=== PATIENT | male | born 1955 | race Caucasian/White ===

== ENCOUNTER 2017-06-19 14:02 | Emergency (ER) | payer MEDICARE, OTHER ==
[~2017-06-19] VITALS: Ht 185.4 cm; Wt 101.6 kg
[~2017-06-19 14:02] MED LIST: FISH1CAP15 PO; GABA-488 PO
--- NOTE | 2017-06-19 14:22 | ED Integumentary General ---
General Chief Complaint: Skin/Wound Problems Stated Complaint: LEFT LEG LAC Source: patient Exam Limitations: no limitations History of Present Illness Date Seen by Provider: June 19, 2017 Time Seen by Provider: 14:10 Initial Comments Patient presents to ER by private conveyance with a chief complaint that he was just finishing mowing his lawn and went to get some gasoline for the mower walked around a tim bumper and it caught him on his left hanley laying him open about 5 or 6 cm. He had quite a bit of bleeding. He applied some pressure brought to the ER. He does not need anything for pain at this time. He is not having any nausea nor does he have any immune compromise. He thinks he had a tetanus shot about 2-3 years ago for similar injury. Other than a skin graft is had no other significant medical history and he takes gabapentin for chronic back pain. Allergies and Home Medications Allergies Coded Allergies: No Known Drug Allergies (Unverified , 03/08/10) Home Medications Fish Oil/Dha/Epa 1 Each Capsule, 1 EACH PO DAILY Prescribed by: CHAR SANCHEZ on 12/09/14 0943 Gabapentin 300 Mg Capsule, 300 MG PO DAILY, (Reported) Patient Home Medication List Home Medication List Reviewed: Yes Constitutional: No chills, No diaphoresis, No fever, No malaise EENTM: No ear discharge, No ear pain Respiratory: No cough, No short of breath Cardiovascular: No chest pain, No edema Gastrointestinal: No abdominal pain, No constipation, No diarrhea, No nausea Past Kdlsxdw-Kwkpjc-Syschs Hx Patient Social History Alcohol Use: Denies Use Recreational Drug Use: No Smoking Status: Never a Smoker Recent Foreign Travel: No Contact w/Someone Who Travel: No Recent Hopitalizations: No Physical Abuse: No Sexual Abuse: No Mistreated: No Fear: No Immunizations Up To Date Date of Influenza Vaccine: Nov 06, 2014 Seasonal Allergies Seasonal Allergies: No Past Medical History Surgeries: Yes (BACK SX, SKIN GRAFT) Orthopedic Respiratory: No Cardiac: No Neurological: No Neuropathy Genitourinary: No Gastrointestinal: No (FAMILY HX COLON CANCER) Musculoskeletal: No Endocrine: No Psychosocial: No Nursing Suicide Risk Score: 0 Integumentary: No Blood Disorders: No Physical Exam Vital Signs Vital Signs - First Documented 06/19/17 14:11 Pulse 88 Resp 20 B/P (MAP) 145/84 (104) Pulse Ox 94 O2 Delivery Room Air Capillary Refill : General Appearance: WD/WN, no apparent distress HEENT: PERRL/EOMI, pharynx normal Neck: non-tender, normal inspection Cardiovascular: normal peripheral pulses, regular rate, rhythm, no edema Respiratory: chest non-tender, no respiratory distress, no accessory muscle use Gastrointestinal: non tender, soft Extremities: non-tender, normal capillary refill, other (5-6 cm marginally undermined straight laceration down to the fascia the anterior left lower extremity leg. About midway down the diaphysis of the tibia. healthy amount of bleeding.) Neurologic/Psychiatric: no motor/sensory deficits, alert, oriented x 3 Skin: other (prior skin graft well-healed. Laceration as noted above.) Procedures/Interventions Wound Location: Lower Extremities Other Wound Location 6 cm Wound Length (cm): 6 Wound's Depth, Shape: into muscle (1cm), linear Irrigated w/ Saline (ccs): 250 Betadine Prep?: No (chlorhexidine) Anesthesia: 1% Lidocaine Volume Anesthetic (ccs): 12 Wound Debrided: minimal Suture: Prolene Suture Size: 0 Number of Sutures: 6 Layer Closure?: 1 Progress Wound was cleaned and undermined with chlorhexidine soap water. Wound is fairly clean start with. Was closed with 6 simple interrupted sutures and well approximated. Patient tolerated procedure very well. Progress/Results/Core Measures Results/Orders My Orders Orders - BRYANT ARVIZU Lidocaine 1% Inj 50 Ml (Xylocaine 1% Inj (06/19/17 14:30) Lidocaine 1% Inj 20 Ml (Xylocaine 1% Inj (06/19/17 14:44) Medications Given in ED Current Medications Medications Dose Ordered Sig/Barb Route Start Time Stop Time Status Last Admin Dose Admin Lidocaine HCl 20 ml STK-MED ONCE .ROUTE 06/19/17 14:44 06/19/17 14:49 DC 06/19/17 14:50 8 ML Vital Signs/I&O 06/19/17 14:11 Pulse 88 Resp 20 B/P (MAP) 145/84 (104) Pulse Ox 94 O2 Delivery Room Air Progress Progress Note : Time: 14:21 Progress Note We've cleaned the wound thoroughly with 250 cc of chlorhexidine sterile saline water and a syringe. There is very little contamination to be seen. No debridement needed. Plan to close primarily by sutures. Given that the wound is on an extremity we'll plan to cover him with 3 days of antibiotics prophylactically. We have counseled proper wound care and will have him follow- up in the ER in 7-10 days for suture removal. Departure Impression Primary Impression: Laceration Disposition: 01 HOME, SELF-CARE Condition: Improved Departure-Patient Inst. Decision time for Depature: 15:14 Referrals: GRACIE SAM MD (PCP/Family) Primary Care Physician Patient Instructions: Laceration Repair With Stitches (DC) Add. Discharge Instructions: Follow-up with your doctor sooner if you begin to have fevers, nausea, increased redness swelling or pain at the site of the wound. Otherwise plan to take your antibiotics for 3 days, keep the wound clean with regular soap and water and a dressing. You may apply a thin layer of Vaseline over the skin edges to keep the moist. Return to the ER or your primary care doctor in 7-10 days to have the stitches removed. All discharge instructions reviewed with patient and/or family. Voiced understanding. Scripts Cephalexin (Cephalexin) 500 Mg Tablet 500 MG PO QID for 3 Days, #12 TAB 0 Refills Prov: BRYANT ARVIZU 06/19/17 Copy Copies To 1: GRACIE SAM MD, TITUS J June 19, 2017 14:22
[2017-06-19] MEDS ORDERED: LIDOCAINE 1% INJ 50 ML (XYLOCAINE) VIAL IJ ONE (14:30)
[2017-06-19] MEDS ORDERED: LIDOCAINE 1% INJ 20 ML 20 ML VIAL ONE (14:44)
[2017-06-19] MEDS ORDERED: CEPH500T PO (15:15)
[2017-06-19 15:35] VITALS: BP 132/81
--- OUTSIDE RECORDS SUMMARY | 2017-06-19 15:48 | XMS REPORT | Continuity of Care Document ---
Author Author [facility] Address Unknown Phone Unavailable Allergies Active Description Code Type Severity Reaction Onset Reported/Identified Relationship to Patient Clinical Status Yes No Known Drug Allergies [id number] Drug Allergy Unknown N/A 03/08/2010 Medications There is no data. Problems Date Dx Coded Attending Type Code Diagnosis Diagnosed By 11/20/2013 TERELL FLOYD DO V04.81 FLU SHOT 12/09/2014 Ot 715.95 12/09/2014 Ot 722.52 12/09/2014 Ot 729.5 12/09/2014 Ot 738.4 12/09/2014 Ot 959.19 12/09/2014 Ot E000.0 12/09/2014 Ot E849.3 12/09/2014 Ot E928.9 12/09/2014 DAVID IBARRA MD Ot V72.84 12/09/2014 SAMREEN SABILLON DO Ot M47.816 SPONDYLOSIS W/O MYELOPATHY OR RADICULOPA 12/16/2014 BELGICA ACE MD Ot 724.02 12/16/2014 BELGICA ACE MD Ot V45.4 10/19/2015 BELGICA ACE MD Ot 724.02 SPINAL STENOSIS, LUMBAR REG, W/OUT NEURO 10/19/2015 BELGICA ACE MD Ot V45.4 ARTHRODESIS STATUS 10/21/2015 BELGICA ACE MD Ot 724.02 SPINAL STENOSIS, LUMBAR REG, W/OUT NEURO 10/21/2015 BELGICA ACE MD Ot V45.4 ARTHRODESIS STATUS 10/22/2015 SAMREEN SABILLON DO Ot M54.9 DORSALGIA, UNSPECIFIED Procedures There is no data. Results There is no data. Encounters ACCT No. Visit Date/Time Discharge Status Pt. Type Provider Facility Loc./Unit Complaint [id number] 11/20/2013 18:57:00 11/20/2013 23:59:59 [place] [id number] 11/14/2016 18:20:00 11/14/2016 23:59:59 CLS Outpatient TERELL FLOYD DO [facility] [id number] 10/21/2015 13:20:00 10/21/2015 23:59:59 CLS Outpatient SAMREEN SABILLON DO [facility] RAD BACK PAIN [id number] 12/09/2014 09:09:00 12/09/2014 14:45:00 DIS Outpatient SAMREEN SABILLON DO [facility] RAD PSEUDOARTHROSIS [id number] 09/03/2013 07:37:00 09/03/2013 10:55:00 DIS Outpatient [id number] 08/30/2013 07:55:00 08/30/2013 23:59:59 CLS Outpatient DAVID IBARRA MD [facility] PREOP [id number] 02/14/2013 09:20:00 02/14/2013 23:59:59 CLS Outpatient BELGICA ACE MD [facility] RAD LUMBAR STENOSIS [id number] 08/16/2011 15:19:00 Document Registration [id number] 09/15/2016 07:49:47 09/15/2016 23:59:59 CLS Outpatient
== END 2017-06-19 15:35 | disposition home or self-care (01) ==
LOC: EDUNIT# 14:02 → ER 14:03
DX: S91.312A Laceration without foreign body, left foot, initial encounter (principal); Z80.0 Family history of malignant neoplasm of digestive organs; W29.8XXA Contact with other powered hand tools and household machinery, initial encounter
CPT/HCPCS: 12055

== ENCOUNTER 2018-03-16 06:19 | Outpatient (CLI) | payer MEDICARE, OTHER ==
[~2018-03-16] VITALS: Ht 185.4 cm; Wt 101.6 kg
[~2018-03-16 06:19] MED LIST changes: +CEPH500T PO
== END 2018-03-16 11:48 | disposition home or self-care (01) ==
LOC: PREOP 06:19
PROVIDERS: ATTEND Internal Medicine
DX: Z01.818 Encounter for other preprocedural examination (principal)

== ENCOUNTER 2018-03-23 07:53 | Day surgery (SDC) | payer MEDICARE, OTHER ==
--- NOTE | 2018-03-12 17:28 | HISTORY AND PHYSICAL ---
DATE OF SERVICE: HISTORY OF PRESENT ILLNESS: The patient is a 62-year-old white male referred for screening colonoscopy. There is a very strong family history for colon cancer. He is one of 16 children. He has had 3 brothers and 2 sisters diagnosed in their 40s, one brother diagnosed in his 60s and two sisters diagnosed in their 60s with colon cancer. He is not aware of any other cancers that have run in the family. He last underwent colonoscopy in 08/2013, at which time no abnormality and no evidence for neoplasia was noted. He reports that he has felt well since then. He has had no bowel habit change. Denies abdominal pain and has noted no evidence for blood in the stool, melena or bright red. He has had no heartburn symptoms and denies any weight change. PAST MEDICAL HISTORY: Noncontributory. PAST SURGICAL HISTORY: He has had lumbar surgery x2, with the last required cage and artificial disk placement. He has had bilateral carpal tunnel surgery in the past. 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 He has rare alcohol intake. FAMILY HISTORY: As noted in the HPI. PHYSICAL EXAMINATION: GENERAL: Reveals a well-appearing white male, who appears to be in no acute distress. VITAL SIGNS: Blood pressure was 126/78, heart rate 70 and regular. HEENT: Unremarkable. He is a Mallampati class 3 oropharyngeal configuration with no evidence for erythema, exudate or ulceration. NECK: Revealed no JVD, adenopathy or bruits. CHEST: Clear to auscultation. CARDIOVASCULAR: Reveals a regular rate and rhythm without murmur, S3 or S4. ABDOMEN: Soft, supple without mass, organomegaly or tenderness. He does have evidence for diastasis recti with no evidence for ventral hernia. Bowel sounds are positive. No bruits are noted. There is no evidence on palpation to suggest abdominal aortic aneurysm. EXTREMITIES: Reveal no cyanosis, clubbing or edema. ASSESSMENT AND PLAN: This patient is set up for early screening colonoscopy due to very strong family history for colon cancer. Multiple siblings being diagnosed as noted above. Prep instructions and Suprep kit were given and questions were answered. He was set up for colonoscopy on 03/23/2018. I thank you for the referral of this pleasant gentleman. Job ID: [id number] DocumentID: [id number] Dictated Date: 03/08/2018 14:50:16 Bail Bonding Agent Date: 03/08/2018 15:09:10 Dictated By: DAVID IBARRA MD MTDD
[~2018-03-23] VITALS: Ht 185.4 cm; Wt 101.6 kg
[2018-03-23] MEDS ORDERED: D5 LR IV SOLUTION 1,000 ML IV STA (08:03)
[2018-03-23] MEDS ORDERED: D5 LR IV SOLUTION 1,000 ML IV ONE (08:03)
[2018-03-23] MEDS ORDERED: fentaNYL INJECTION 100 MCG/2 ML AMP IVP ONE (08:15)
[2018-03-23] MEDS ORDERED: MIDAZOLAM 2 MG/2 ML (VERSED) VIAL IVP ONE (08:15)
[2018-03-23] MEDS ORDERED: LIDOCAINE JELLY 2% 6 ML SYRINGE MM PRN (08:15)
[2018-03-23 08:17] VITALS: BP 139/82
--- NOTE | 2018-03-23 08:47 | Pre-Op Note & Conscious Sedat ---
Pre-Operative Progress Note H&P Reviewed The H&P was reviewed, patient examined and no changes noted. Date H&P Reviewed: Mar 23, 2018 Time H&P Reviewed: 08:47 Conscious Sedation Pre-Proced ASA Score 2 For ASA 3 and 4: Consider anesthesia and medical clearance. Also, for patients with a history of failed moderate sedation consider anesthesia. Airway Lungs Heart ASA score ASA 1: a normal healthy patient ASA 2: a patient with a mild systemic disease (mid diabetes, controlled hypertension, obesity ASA 3: a patient with a severe systemic disease that limits activity (angina , COPD, prior Myocardial infarction) ASA 4: a patient with an incapacitating disease that is a constant threat to life (CHF, renal failure) ASA 5: a moribund patient not expected to survive 24 hrs. (ruptured aneurysm) ASA 6: a declared brain- patient whose organs are being harvested. For emergent operations, add the letter E after the classification Mallampati Classification Grade 3 Sedation Plan Analgesia, Amnesia, Plan communicated to team members, Discussed options with patient/fam, Discussed risks with patient/fam The patient is an appropriate candidate to undergo the planned procedure, sedation, and anesthesia. The patient immediately re-assessed prior to indication. DAVID IBARRA MD Mar 23, 2018 08:47
[2018-03-23] MEDS ORDERED: MIDAZOLAM 2 MG/2 ML (VERSED) VIAL ONE ×2 (08:54)
[2018-03-23] MEDS ORDERED: fentaNYL INJECTION 100 MCG/2 ML AMP ONE (08:54)
[2018-03-23] MEDS ORDERED: LIDOCAINE JELLY 2% 6 ML SYRINGE ONE (08:55)
[2018-03-23 09:50] VITALS: BP 116/72
--- OUTSIDE RECORDS SUMMARY | 2018-03-23 10:19 | XMS REPORT | CCD ---
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 Role Phone PP Unavailable CCM Unavailable Summary Purpose Interface Exchange Insurance Providers Payer name Policy type / Coverage type Covered alliance party ID Effective Begin Date Effective End Date WPS Medicare Part B Medicare Part B [id number] Unknown [employer] [place] Medicare Part B [id number] Unknown Family history Sister Diagnosis Age At Onset Diabetes Unknown Father Diagnosis Age At Onset Stroke Unknown Brother Diagnosis Age At Onset Diabetes Unknown Brother Diagnosis Age At Onset No Family Disease Entered N/A Mother Diagnosis Age At Onset Diabetes Unknown Social History Social History Element Codes Description Effective Dates Number of children Unknown 1 03/06/2018 On Disability Unknown Yes 03/06/2018 Marital status Unknown Sandra 08/24/[address]: 767465281 Never smoker 08/25/[address]: 343349763 Never drinks alcohol 08/25/2014 Allergies, Adverse Reactions, Alerts Substance Reaction Codes Entered Date Inactivated Date Status * OTHER REACTION - SEE ANSWER BOX Hydrocodone- dizzy, sick Unknown 08/24/2015 No Inactive Date Active Past Medical History Illness Codes Condition Status Onset Date Resolved Date Encounter for general adult medical examination with abnormal findings ICD-9: V70.0 ICD-10: Z00.01 Active 03/06/2018 Unknown Abnormal results of liver function studies ICD-9: 794.8 ICD-10: R94.5 Active 02/22/2018 Unknown Encounter for general adult medical examination without abnormal findings ICD-9: V70.0 ICD-10: Z00.00 Active 08/23/2015 Unknown Generalized anxiety disorder ICD-9: 300.02 ICD-10: F41.1 Active 02/19/2018 Unknown Other idiopathic peripheral autonomic neuropathy ICD-9: 337.00 ICD-10: G90.09 Active 08/25/2016 Unknown Encounter for removal of sutures ICD-9: V58.32 ICD-10: Z48.02 Active 06/28/2017 Unknown neuropathy Unknown Active 08/25/2016 Unknown Acute laryngopharyngitis ICD-9: 465.0 ICD-10: J06.0 Active 10/25/2015 Unknown Other allergic rhinitis ICD-9: 477.8 ICD-10: J30.89 Active 10/25/2015 Unknown Polyneuropathy, unspecified ICD-9: 356.9 ICD-10: G62.9 Active 08/24/2014 Unknown Peripheral neuropathy ICD-9: 356.9 Active 08/24/2014 Unknown Tinea ICD-9: 110.9 Active 08/24/2014 Unknown Problems Condition Codes Effective Dates Condition Status Encounter for general adult medical examination with abnormal findings ICD-9: V70.0 ICD-10: Z00.01 03/06/2018 Active Abnormal results of liver function studies ICD-9: 794.8 ICD-10: R94.5 02/22/2018 Active Encounter for general adult medical examination without abnormal findings ICD-9: V70.0 ICD-10: Z00.00 08/23/2015 Active Generalized anxiety disorder ICD-9: 300.02 ICD-10: F41.1 02/19/2018 Active Other idiopathic peripheral autonomic neuropathy ICD-9: 337.00 ICD-10: G90.09 08/25/2016 Active Encounter for removal of sutures ICD-9: V58.32 ICD-10: Z48.02 06/28/2017 Active neuropathy Unknown 08/25/2016 Active Acute laryngopharyngitis ICD-9: 465.0 ICD-10: J06.0 10/25/2015 Active Other allergic rhinitis ICD-9: 477.8 ICD-10: J30.89 10/25/2015 Active Polyneuropathy, unspecified ICD-9: 356.9 ICD-10: G62.9 08/24/2014 Active Peripheral neuropathy ICD-9: 356.9 08/24/2014 Active Tinea ICD-9: 110.9 08/24/2014 Active Medications Medication Codes Instructions Start Date Stop Date Status Fill Instructions Lexapro 10 mg tablet RxNorm: 174627 1 Tablet(s) PO QPM 201809/01/2018 Active start with 1/2 pill x 1 week then increase to a full pill Lyrica 100 mg capsule RxNorm: 200816 1 Capsule(s) PO TID 201602/18/2018 Inactive Lyrica 75 mg capsule RxNorm: 485262 1 Capsule(s) PO TID 201609/07/2016 Inactive gabapentin 300 mg capsule RxNorm: 802465 Capsule(s) TAKE ONE CAPSULE BY MOUTH THREE TIMES DAILY 01/28/2016 08/24/2016 Inactive Tessalon Perles 100 mg capsule RxNorm: 526652 1 Capsule(s) PO TID as needed 10/26/2015 10/30/2015 Inactive amoxicillin 500 mg capsule RxNorm: 443345 1 Capsule(s) PO TID 10/26/2015 11/01/2015 Inactive Fish Oil 1,000 mg capsule RxNorm: 1 Capsule(s) PO BID 201510/10/2015 Inactive gabapentin 300 mg capsule RxNorm: 370857 Capsule(s) TAKE ONE CAPSULE BY MOUTH THREE TIMES DAILY 08/13/2015 01/27/2016 Inactive Generic For:NEURONTIN 300MG N O T I C E PRESCRIPTION PREVIOUSLY AUTHORIZED BY DOCTOR:ZEKE LANCASTER [phone] gabapentin 300 mg capsule RxNorm: 807088 Capsule(s) TAKE ONE CAPSULE BY MOUTH THREE TIMES DAILY 03/10/2015 08/12/2015 Inactive Generic For:NEURONTIN 300MG N O T I C E PRESCRIPTION PREVIOUSLY AUTHORIZED BY DOCTOR:ZEKE LANCASTER gabapentin 300 mg capsule RxNorm: 689884 Capsule(s) TAKE ONE CAPSULE BY MOUTH THREE TIMES DAILY 03/10/2015 03/09/2015 Inactive Generic For:NEURONTIN 300MG N O T I C E PRESCRIPTION PREVIOUSLY AUTHORIZED BY DOCTOR:ZEKE LANCASTER gabapentin 300 mg capsule RxNorm: 770570 TAKE ONE CAPSULE BY MOUTH THREE TIMES DAILY 11/28/2014 03/09/2015 Inactive Generic For:NEURONTIN 300MG N O T I C E PRESCRIPTION PREVIOUSLY AUTHORIZED BY DOCTOR:ZEKE LANCASTER ketoconazole 2 % shampoo RxNorm: 692193 1 Application TOP daily 08/25/2014 08/31/2014 Inactive gabapentin 300 mg capsule RxNorm: 992905 1 Capsule(s) PO TID No Start Date 11/27/2014 Inactive Medication Administered No Medication Administered data Immunizations Vaccine Codes Date Status Influenza CVX: 141 11/06/2013 completed Assessments Condition Codes Effective Dates Encounter for general adult medical examination with abnormal findings ICD-10: Z00.01 ICD-9: V70.0 03/06/2018 Abnormal results of liver function studies ICD-10: R94.5 ICD-9: 794.8 02/22/2018 Generalized anxiety disorder ICD-10: F41.1 ICD-9: 300.02 02/19/2018 Other idiopathic peripheral autonomic neuropathy ICD-10: G90.09 ICD-9: 337.00 02/19/2018 Encounter for removal of sutures ICD-10: Z48.02 ICD-9: V58.32 06/28/2017 Acute laryngopharyngitis ICD-10: J06.0 ICD-9: 465.0 10/26/2015 Other allergic rhinitis ICD-10: J30.89 ICD-9: 477.8 10/26/2015 Polyneuropathy, unspecified ICD-10: G62.9 ICD-9: 356.9 08/24/2015 Encounter for general adult medical examination without abnormal findings ICD-10: Z00.00 ICD-9: V70.0 08/24/2015 Tinea ICD-9: 110.9 08/25/2014 Peripheral neuropathy ICD-9: 356.9 2014 Reason For Visit Reason For Visit Effective Dates Notes Annual Medicare Wellness Exam 03/06/2018 paresthesia 02/19/2018 paresthesia 08/25/2016 sinus congestion 10/26/2015 weight gain/obesity 08/24/2015 back pain 08/25/2014 Results Observation Observation Code Item Item Code Result Date Hepatitis Panel (Abc) 39123 HEPATITIS B SURFACE AG . Hepatitis Panel (Abc) 35456 HEPATITIS B SURFACE AG NEGATIVE 02/23/2018 Hepatitis Panel (Abc) 33184 HEPATITIS B CORE AB, IGM . Hepatitis Panel (Abc) 27086 HEPATITIS B CORE AB, IGM NEGATIVE 02/23/2018 Hepatitis Panel (Abc) 61873 HEPATITIS A AB, IGM . 2018 Hepatitis Panel (Abc) 77409 HEPATITIS A AB, IGM NEGATIVE Hepatitis Panel (Abc) 99181 HEPATITIS C ANTIBODY . 2018 Hepatitis Panel (Abc) 27015 HEPATITIS C ANTIBODY NEGATIVE Lipid Ord30 CHOL 194 mg/dL 02/20/2018 Lipid Ord30 HDL 38.0 mg/dl 02/20/2018 Lipid Ord30 TRIG 223 mg/dL 02/20/2018 Lipid Ord30 LDL 111 mg/dL 02/20/2018 Lipid Ord30 C/HDL 5.1 Ratio 02/20/2018 Comp Metabolic Iqa791 NA 139 mEq/L 02/20/2018 Comp Metabolic Psg792 K 4.5 mEq/L 02/20/2018 Comp Metabolic Smh159 CL 101 mEq/L 02/20/2018 Comp Metabolic Xfx163 CO2 31.0 mEq/L 02/20/2018 Comp Metabolic Htm562 ANION GAP 12 02/20/2018 Comp Metabolic Vri701 GLUCOSE 103 mg/dL 02/20/2018 Comp Metabolic Hkc883 Creat 0.9 mg/dL 02/20/2018 Comp Metabolic Wqe083 eGFR 92 ml/min/1.73m2 02/20/2018 Comp Metabolic Gjg882 BUN 12 mg/dL 02/20/2018 Comp Metabolic Dcj277 B/C Ratio 13.5 Ratio 02/20/2018 Comp Metabolic Sgy156 CALCIUM 10.4 mg/dL 02/20/2018 Comp Metabolic Nzt882 ALK PHOS 71 U/L 02/20/2018 Comp Metabolic Okq747 AST(SGOT) 44 U/L 02/20/2018 Comp Metabolic Yyp161 ALT(SGPT) 84 U/L 02/20/2018 Comp Metabolic Kdy298 BILI T 0.8 mg/dL 02/20/2018 Comp Metabolic Uge350 ALBUMIN 4.7 g/dL 02/20/2018 Comp Metabolic Ors781 TPRO 7.3 g/dL 02/20/2018 Comp Metabolic Arx903 GLOB 2.6 g/dL 02/20/2018 Comp Metabolic Fpl393 A/G Ratio 1.8 Ratio 02/20/2018 Comp Metabolic Nsd734 Osmo 278 mOsmo 02/20/2018 Tsh Ord6 TSH (3rd IS) 2.12 uIU/mL 02/20/2018 Cbc With Differential Ord2 WBC 6.67 K/ul 02/20/2018 Cbc With Differential Ord2 RBC 5.83 M/ul 02/20/2018 Cbc With Differential Ord2 HGB 16.8 g/dl 02/20/2018 Cbc With Differential Ord2 Neut% 47.2 % 02/20/2018 Cbc With Differential Ord2 HCT 49.1 % 02/20/2018 Cbc With Differential Ord2 Lymph% 35.2 % 02/20/2018 Cbc With Differential Ord2 MCV 84.2 fl 02/20/2018 Cbc With Differential Ord2 MCH 28.8 pg 02/20/2018 Cbc With Differential Ord2 [place]% 11.8 % 02/20/2018 Cbc With Differential Ord2 MCHC 34.2 pg 02/20/2018 Cbc With Differential Ord2 Eos% 5.1 % 02/20/2018 Cbc With Differential Ord2 PLT 226 K/ul 02/20/2018 Cbc With Differential Ord2 Baso% 0.7 % 02/20/2018 Cbc With Differential Ord2 Neut ABS# 3.14 K/ul 02/20/2018 Cbc With Differential Ord2 RDW 14.0 % 02/20/2018 Cbc With Differential Ord2 Lymph ABS# 2.35 K/ul 02/20/2018 Cbc With Differential Ord2 [place] ABS# 0.8 K/ul 02/20/2018 Cbc With Differential Ord2 Eos ABS# 0.3 K/ul 02/20/2018 Cbc With Differential Ord2 Baso ABS# 0.1 K/ul 02/20/2018 Total Psa Ord10 PSA 0.34 ng/mL 02/20/2018 Tsh Ord6 hTSH II 1.55 uIU/mL 08/26/2016 Lipid Ord30 CHOL 181 mg/dL 08/26/2016 Lipid Ord30 HDL 42.0 mg/dl 08/26/2016 Lipid Ord30 TRIG 169 mg/dL 08/26/2016 Lipid Ord30 LDL 105 mg/dL 08/26/2016 Lipid Ord30 C/HDL 4.3 Ratio 08/26/2016 Folate Ord36 Folate 21.80 ng/mL 08/26/2016 Cbc With Differential Ord2 WBC 7.61 K/ul 08/26/2016 Cbc With Differential Ord2 RBC 5.61 M/ul 08/26/2016 Cbc With Differential Ord2 HGB 16.2 g/dl 08/26/2016 Cbc With Differential Ord2 HCT 48.0 % 08/26/2016 Cbc With Differential Ord2 Neut% 56.5 % 08/26/2016 Cbc With Differential Ord2 Lymph% 29.4 % 08/26/2016 Cbc With Differential Ord2 MCV 85.6 fl 08/26/2016 Cbc With Differential Ord2 MCH 28.9 pg 08/26/2016 Cbc With Differential Ord2 [place]% 8.7 % 08/26/2016 Cbc With Differential Ord2 MCHC 33.8 pg 08/26/2016 Cbc With Differential Ord2 Eos% 4.9 % 08/26/2016 Cbc With Differential Ord2 Baso% 0.5 % 08/26/2016 Cbc With Differential Ord2 PLT 210 K/ul 08/26/2016 Cbc With Differential Ord2 Neut ABS# 4.30 K/ul 08/26/2016 Cbc With Differential Ord2 RDW 13.9 % 08/26/2016 Cbc With Differential Ord2 Lymph ABS# 2.24 K/ul 08/26/2016 Cbc With Differential Ord2 [place] ABS# 0.7 K/ul 08/26/2016 Cbc With Differential Ord2 Eos ABS# 0.4 K/ul 08/26/2016 Cbc With Differential Ord2 Baso ABS# 0.0 K/ul 08/26/2016 Comp Metabolic Rdl819 NA 140 mEq/L 08/26/2016 Comp Metabolic Uia979 K 4.8 mEq/L 08/26/2016 Comp Metabolic Dam182 CL 105 mEq/L 08/26/2016 Comp Metabolic Xbc928 CO2 28.0 mEq/L 08/26/2016 Comp Metabolic Bvf267 ANION GAP 12 08/26/2016 Comp Metabolic Pce224 GLUCOSE 96 mg/dL 08/26/2016 Comp Metabolic Hvr023 Creat 1.0 mg/dL 08/26/2016 Comp Metabolic Gdy745 eGFR 78 ml/min/1.73m2 08/26/2016 Comp Metabolic Oyw989 BUN 16 mg/dL 08/26/2016 Comp Metabolic Jtu574 B/C Ratio 15.5 Ratio 08/26/2016 Comp Metabolic Trx151 CALCIUM 9.6 mg/dL 08/26/2016 Comp Metabolic Avz842 ALK PHOS 74 U/L 08/26/2016 Comp Metabolic Cbz939 AST(SGOT) 30 U/L 08/26/2016 Comp Metabolic Hli848 ALT(SGPT) 48 U/L 08/26/2016 Comp Metabolic Neo875 BILI T 0.7 mg/dL 08/26/2016 Comp Metabolic Ixs080 ALBUMIN 4.3 g/dL 08/26/2016 Comp Metabolic Nyi703 TPRO 7.1 g/dL 08/26/2016 Comp Metabolic Gum335 GLOB 2.8 g/dL 08/26/2016 Comp Metabolic Syj526 A/G Ratio 1.6 Ratio 08/26/2016 Comp Metabolic Kqz302 Osmo 280 mOsmo 08/26/2016 B12 Mte199 B12 545.00 pg/ml 08/26/2016 Cbc With Differential Ord2 WBC 6.53 K/ul 08/24/2015 Cbc With Differential Ord2 RBC 5.43 M/ul 08/24/2015 Cbc With Differential Ord2 HGB 15.7 g/dl 08/24/2015 Cbc With Differential Ord2 HCT 46.5 % 08/24/2015 Cbc With Differential Ord2 Neut% 48.5 % 08/24/2015 Cbc With Differential Ord2 MCV 85.6 fl 08/24/2015 Cbc With Differential Ord2 Lymph% 34.8 % 08/24/2015 Cbc With Differential Ord2 MCH 28.9 pg 08/24/2015 Cbc With Differential Ord2 [place]% 13.2 % 08/24/2015 Cbc With Differential Ord2 MCHC 33.8 pg 08/24/2015 Cbc With Differential Ord2 Eos% 3.2 % 08/24/2015 Cbc With Differential Ord2 Baso% 0.3 % 08/24/2015 Cbc With Differential Ord2 PLT 218 K/ul 08/24/2015 Cbc With Differential Ord2 Neut ABS# 3.17 K/ul 08/24/2015 Cbc With Differential Ord2 RDW 14.3 % 08/24/2015 Cbc With Differential Ord2 Lymph ABS# 2.27 K/ul 08/24/2015 Cbc With Differential Ord2 [place] ABS# 0.9 K/ul 08/24/2015 Cbc With Differential Ord2 Eos ABS# 0.2 K/ul 08/24/2015 Cbc With Differential Ord2 Baso ABS# 0.0 K/ul 08/24/2015 Comp Metabolic Ouv898 NA 136 mEq/L 08/24/2015 Comp Metabolic Bfs799 K 4.4 mEq/L 08/24/2015 Comp Metabolic Pnb037 CL 102 mEq/L 08/24/2015 Comp Metabolic Hzr151 CO2 26.0 mEq/L 08/24/2015 Comp Metabolic Xrr280 ANION GAP 12 08/24/2015 Comp Metabolic Xja634 GLUCOSE 85 mg/dL 08/24/2015 Comp Metabolic Sui734 Creat 0.9 mg/dL 08/24/2015 Comp Metabolic Qok748 eGFR 87 ml/min/1.73m2 08/24/2015 Comp Metabolic Ovo779 BUN 14 mg/dL 08/24/2015 Comp Metabolic Zwy177 B/C Ratio 14.9 Ratio 08/24/2015 Comp Metabolic Oqj009 CALCIUM 9.5 mg/dL 08/24/2015 Comp Metabolic Fgn706 ALK PHOS 80 U/L 08/24/2015 Comp Metabolic Ruz430 AST(SGOT) 35 U/L 08/24/2015 Comp Metabolic Ceh945 ALT(SGPT) 58 U/L 08/24/2015 Comp Metabolic Xmg455 BILI T 0.8 mg/dL 08/24/2015 Comp Metabolic Wlw767 ALBUMIN 4.8 g/dL 08/24/2015 Comp Metabolic Mxx711 TPRO 7.3 g/dL 08/24/2015 Comp Metabolic Yiv618 GLOB 2.5 g/dL 08/24/2015 Comp Metabolic Due290 A/G Ratio 1.9 Ratio 08/24/2015 Comp Metabolic Adz091 Osmo 272 mOsmo 08/24/2015 Lipid Ord30 CHOL 205 mg/dL 08/24/2015 Lipid Ord30 HDL 39.0 mg/dl 08/24/2015 Lipid Ord30 TRIG 192 mg/dL 08/24/2015 Lipid Ord30 LDL 128 mg/dL 08/24/2015 Lipid Ord30 C/HDL 5.3 Ratio 08/24/2015 Tsh Ord6 hTSH II 2.26 uIU/mL 08/24/2015 Cbc With Differential Ord2 WBC 6.0 K/uL 08/26/2014 Cbc With Differential Ord2 LYM 1.7 K/uL 08/26/2014 Cbc With Differential Ord2 LYM% 28.9 % 08/26/2014 Cbc With Differential Ord2 NEUT/GRAN 3.7 K/uL 08/26/2014 Cbc With Differential Ord2 NEUT/GRAN % 61.8 % 08/26/2014 Cbc With Differential Ord2 MID 0.6 K/uL 08/26/2014 Cbc With Differential Ord2 MID% 9.3 % 08/26/2014 Cbc With Differential Ord2 RBC 5.34 M/uL 08/26/2014 Cbc With Differential Ord2 HGB 15.6 g/dL 08/26/2014 Cbc With Differential Ord2 HCT 45.7 % 08/26/2014 Cbc With Differential Ord2 MCV 86 fL 08/26/2014 Cbc With Differential Ord2 MCH 29 pg 08/26/2014 Cbc With Differential Ord2 MCHC 34 g/dL 08/26/2014 Cbc With Differential Ord2 PLT 227 K/uL 08/26/2014 Cbc With Differential Ord2 RDW 13.4 % 08/26/2014 Lipid Ord30 CHOL 185 mg/dL 08/26/2014 Lipid Ord30 HDL 36.0 mg/dl 08/26/2014 Lipid Ord30 TRIG 274 mg/dL 08/26/2014 Lipid Ord30 LDL 94 mg/dL 08/26/2014 Lipid Ord30 C/HDL 5.1 Ratio 08/26/2014 Comp Metabolic Gog929 NA 135 mEq/L 08/26/2014 Comp Metabolic Jxt815 K 4.7 mEq/L 08/26/2014 Comp Metabolic Wfz175 CL 101 mEq/L 08/26/2014 Comp Metabolic Efe904 CO2 29.0 mEq/L 08/26/2014 Comp Metabolic Izz923 ANION GAP 10 08/26/2014 Comp Metabolic Ofj493 GLUCOSE 99 mg/dL 08/26/2014 Comp Metabolic Nyl837 Creat 0.9 mg/dL 08/26/2014 Comp Metabolic Idu263 eGFR 97 ml/min/1.73m2 08/26/2014 Comp Metabolic Fxw742 BUN 13 mg/dL 08/26/2014 Comp Metabolic Gvu026 B/C Ratio 15.1 Ratio 08/26/2014 Comp Metabolic Rbf857 CALCIUM 9.7 mg/dL 08/26/2014 Comp Metabolic Abs176 ALK PHOS 89 U/L 08/26/2014 Comp Metabolic Zwx879 AST(SGOT) 19 U/L 08/26/2014 Comp Metabolic Tbo560 ALT(SGPT) 29 U/L 08/26/2014 Comp Metabolic Ton570 BILI T 0.6 mg/dL 08/26/2014 Comp Metabolic Mdb491 ALBUMIN 4.5 g/dL 08/26/2014 Comp Metabolic Tpj961 TPRO 6.9 g/dL 08/26/2014 Comp Metabolic Kav370 GLOB 2.4 g/dL 08/26/2014 Comp Metabolic Vpp660 A/G Ratio 1.9 Ratio 08/26/2014 Comp Metabolic Cne283 Osmo 270 mOsmo 08/26/2014 Review of Systems System Result Effective Dates Constitutional No recent illness 2018 Constitutional No chills 03/06/2018 Constitutional No fatigue 03/06/2018 Constitutional No fever 03/06/2018 Constitutional No insomnia 03/06/2018 Constitutional No malaise 03/06/2018 Eyes No blindness 03/06/2018 Eyes No vision change 03/06/2018 Ears/Nose/Throat/Neck No dental pain Ears/Nose/Throat/Neck No dizziness 2018 Ears/Nose/Throat/Neck No dysphagia 2018 Ears/Nose/Throat/Neck No headache 2018 Ears/Nose/Throat/Neck No hearing loss Ears/Nose/Throat/Neck nasal allergies Ears/Nose/Throat/Neck No postnasal drip 03/06/2018 Ears/Nose/Throat/Neck No sinus congestion 03/06/2018 Ears/Nose/Throat/Neck No sore throat Cardiovascular No chest pain/pressure Cardiovascular No dyspnea 03/06/2018 Cardiovascular No edema 03/06/2018 Cardiovascular No exercise intolerance Cardiovascular No fatigue 03/06/2018 Cardiovascular No near-syncope/dizziness 03/06/2018 Respiratory No chest tightness 2018 Respiratory No cough 03/06/2018 Respiratory No dyspnea 03/06/2018 Respiratory No pedal edema 03/06/2018 Gastrointestinal No abdominal pain 2018 Gastrointestinal No constipation 2018 Gastrointestinal No diarrhea 03/06/2018 Gastrointestinal No gastroesophageal reflux 03/06/2018 Gastrointestinal No nausea 03/06/2018 Gastrointestinal No vomiting 03/06/2018 Genitourinary/Nephrology No dysuria 03/06 Genitourinary/Nephrology No nocturia Genitourinary/Nephrology No urinary incontinence 03/06/2018 Musculoskeletal No stiffness 03/06/2018 Musculoskeletal No swelling 03/06/2018 Musculoskeletal No muscle weakness 2018 Musculoskeletal No myalgias 03/06/2018 Dermatologic No rash 03/06/2018 Dermatologic No sores 03/06/2018 Dermatologic No scar 03/06/2018 Neurologic No dizziness 03/06/2018 Neurologic No headache 03/06/2018 Neurologic No neck pain 03/06/2018 Neurologic No syncope 03/06/2018 Psychiatric anxiety 03/06/2018 Psychiatric No depression 03/06/2018 Ears/Nose/Throat/Neck nasal discharge Constitutional No recent illness 2018 Constitutional No chills 02/19/2018 Constitutional No fatigue 02/19/2018 Constitutional No fever 02/19/2018 Constitutional No insomnia 02/19/2018 Constitutional No malaise 02/19/2018 Eyes No blindness 02/19/2018 Eyes No vision change 02/19/2018 Ears/Nose/Throat/Neck No dental pain Ears/Nose/Throat/Neck No dizziness 2018 Ears/Nose/Throat/Neck No dysphagia 2018 Ears/Nose/Throat/Neck No headache 2018 Ears/Nose/Throat/Neck No hearing loss Ears/Nose/Throat/Neck No nasal allergies 02/19/2018 Ears/Nose/Throat/Neck No sore throat Ears/Nose/Throat/Neck No postnasal drip 02/19/2018 Ears/Nose/Throat/Neck No sinus congestion 02/19/2018 Cardiovascular No chest pain/pressure Cardiovascular No dyspnea 02/19/2018 Cardiovascular No edema 02/19/2018 Cardiovascular No exercise intolerance Cardiovascular No fatigue 02/19/2018 Cardiovascular No near-syncope/dizziness 02/19/2018 Respiratory No chest tightness 2018 Respiratory No cough 02/19/2018 Respiratory No dyspnea 02/19/2018 Respiratory No pedal edema 02/19/2018 Gastrointestinal No abdominal pain 2018 Gastrointestinal No constipation 2018 Gastrointestinal No diarrhea 02/19/2018 Gastrointestinal No gastroesophageal reflux 02/19/2018 Gastrointestinal No nausea 02/19/2018 Gastrointestinal No vomiting 02/19/2018 Genitourinary/Nephrology No dysuria 02/19 Genitourinary/Nephrology No nocturia Genitourinary/Nephrology No urinary incontinence 02/19/2018 Musculoskeletal No stiffness 02/19/2018 Musculoskeletal No swelling 02/19/2018 Musculoskeletal No muscle weakness 2018 Musculoskeletal No myalgias 02/19/2018 Dermatologic No rash 02/19/2018 Dermatologic No sores 02/19/2018 Dermatologic No scar 02/19/2018 Neurologic No dizziness 02/19/2018 Neurologic No headache 02/19/2018 Neurologic No neck pain 02/19/2018 Neurologic No syncope 02/19/2018 Psychiatric anxiety 02/19/2018 Psychiatric No depression 02/19/2018 Constitutional No recent illness 2016 Constitutional No chills 08/25/2016 Constitutional No fatigue 08/25/2016 Constitutional No fever 08/25/2016 Constitutional No insomnia 08/25/2016 Constitutional No malaise 08/25/2016 Eyes No blindness 08/25/2016 Eyes No vision change 08/25/2016 Ears/Nose/Throat/Neck No dental pain Ears/Nose/Throat/Neck No dizziness 2016 Ears/Nose/Throat/Neck No dysphagia 2016 Ears/Nose/Throat/Neck No headache 2016 Ears/Nose/Throat/Neck No hearing loss Ears/Nose/Throat/Neck No nasal allergies 08/25/2016 Ears/Nose/Throat/Neck No sore throat Ears/Nose/Throat/Neck No postnasal drip 08/25/2016 Ears/Nose/Throat/Neck No sinus congestion 08/25/2016 Cardiovascular No chest pain/pressure Cardiovascular No dyspnea 08/25/2016 Cardiovascular No edema 08/25/2016 Cardiovascular No exercise intolerance Cardiovascular No fatigue 08/25/2016 Cardiovascular No near-syncope/dizziness 08/25/2016 Respiratory No chest tightness 2016 Respiratory No cough 08/25/2016 Respiratory No dyspnea 08/25/2016 Respiratory No pedal edema 08/25/2016 Gastrointestinal No abdominal pain 2016 Gastrointestinal No constipation 2016 Gastrointestinal No diarrhea 08/25/2016 Gastrointestinal No gastroesophageal reflux 08/25/2016 Gastrointestinal No nausea 08/25/2016 Gastrointestinal No vomiting 08/25/2016 Genitourinary/Nephrology No dysuria 08/25 Genitourinary/Nephrology No nocturia Genitourinary/Nephrology No urinary incontinence 08/25/2016 Musculoskeletal No stiffness 08/25/2016 Musculoskeletal No swelling 08/25/2016 Musculoskeletal No muscle weakness 2016 Musculoskeletal No myalgias 08/25/2016 Dermatologic No rash 08/25/2016 Dermatologic No sores 08/25/2016 Dermatologic No scar 08/25/2016 Neurologic No dizziness 08/25/2016 Neurologic No headache 08/25/2016 Neurologic No neck pain 08/25/2016 Neurologic No syncope 08/25/2016 Psychiatric No anxiety 08/25/2016 Psychiatric No depression 08/25/2016 Constitutional recent illness 10/26/2015 Constitutional No chills 10/26/2015 Constitutional fever 10/26/2015 Eyes No eye erythema 10/26/2015 Eyes No vision change 10/26/2015 Ears/Nose/Throat/Neck nasal allergies Ears/Nose/Throat/Neck sore throat 2015 Ears/Nose/Throat/Neck postnasal drip Ears/Nose/Throat/Neck sinus congestion Cardiovascular No chest pain/pressure Cardiovascular No dyspnea 10/26/2015 Respiratory cough 10/26/2015 Gastrointestinal No abdominal pain 2015 Gastrointestinal No diarrhea 10/26/2015 Gastrointestinal No nausea 10/26/2015 Gastrointestinal No vomiting 10/26/2015 Dermatologic No rash 10/26/2015 Dermatologic No scar 10/26/2015 Ears/Nose/Throat/Neck nasal discharge Respiratory No chest congestion 2015 Respiratory No dyspnea 10/26/2015 Gastrointestinal No constipation 2015 Musculoskeletal No joint complaint 2015 Neurologic No alteration of consciousness 10/26/2015 Neurologic No mental status change 2015 Constitutional No recent illness 2015 Constitutional No chills 08/24/2015 Constitutional No fatigue 08/24/2015 Constitutional No fever 08/24/2015 Constitutional No insomnia 08/24/2015 Constitutional No malaise 08/24/2015 Eyes No blindness 08/24/2015 Eyes No vision change 08/24/2015 Ears/Nose/Throat/Neck No dental pain Ears/Nose/Throat/Neck No dizziness 2015 Ears/Nose/Throat/Neck No dysphagia 2015 Ears/Nose/Throat/Neck No headache 2015 Ears/Nose/Throat/Neck No hearing loss Ears/Nose/Throat/Neck No nasal allergies 08/24/2015 Ears/Nose/Throat/Neck No sore throat Ears/Nose/Throat/Neck No postnasal drip 08/24/2015 Ears/Nose/Throat/Neck No sinus congestion 08/24/2015 Cardiovascular No chest pain/pressure Cardiovascular No dyspnea 08/24/2015 Cardiovascular No edema 08/24/2015 Cardiovascular No exercise intolerance Cardiovascular No fatigue 08/24/2015 Cardiovascular No near-syncope/dizziness 08/24/2015 Respiratory No chest tightness 2015 Respiratory No cough 08/24/2015 Respiratory No dyspnea 08/24/2015 Respiratory No pedal edema 08/24/2015 Gastrointestinal No abdominal pain 2015 Gastrointestinal No constipation 2015 Gastrointestinal No diarrhea 08/24/2015 Gastrointestinal No gastroesophageal reflux 08/24/2015 Gastrointestinal No nausea 08/24/2015 Gastrointestinal No vomiting 08/24/2015 Genitourinary/Nephrology No dysuria 08/23 Genitourinary/Nephrology No nocturia Genitourinary/Nephrology No urinary incontinence 08/24/2015 Musculoskeletal No stiffness 08/24/2015 Musculoskeletal No swelling 08/24/2015 Musculoskeletal No muscle weakness 2015 Musculoskeletal No myalgias 08/24/2015 Dermatologic No rash 08/24/2015 Dermatologic No sores 08/24/2015 Dermatologic No scar 08/24/2015 Neurologic No dizziness 08/24/2015 Neurologic No headache 08/24/2015 Neurologic No neck pain 08/24/2015 Neurologic No syncope 08/24/2015 Psychiatric No anxiety 08/24/2015 Psychiatric No depression 08/24/2015 Constitutional No recent illness 2014 Constitutional No chills 08/25/2014 Constitutional No fatigue 08/25/2014 Constitutional No fever 08/25/2014 Constitutional No insomnia 08/25/2014 Constitutional No malaise 08/25/2014 Eyes No blindness 08/25/2014 Eyes No vision change 08/25/2014 Ears/Nose/Throat/Neck No dental pain Ears/Nose/Throat/Neck No dizziness 2014 Ears/Nose/Throat/Neck No dysphagia 2014 Ears/Nose/Throat/Neck No headache 2014 Ears/Nose/Throat/Neck No hearing loss Ears/Nose/Throat/Neck No nasal allergies 08/25/2014 Ears/Nose/Throat/Neck No sore throat Ears/Nose/Throat/Neck No postnasal drip 08/25/2014 Ears/Nose/Throat/Neck No sinus congestion 08/25/2014 Cardiovascular No chest pain/pressure Cardiovascular No dyspnea 08/25/2014 Cardiovascular No edema 08/25/2014 Cardiovascular No exercise intolerance Cardiovascular No fatigue 08/25/2014 Cardiovascular No near-syncope/dizziness 08/25/2014 Respiratory No chest tightness 2014 Respiratory No cough 08/25/2014 Respiratory No dyspnea 08/25/2014 Respiratory No pedal edema 08/25/2014 Gastrointestinal No abdominal pain 2014 Gastrointestinal No constipation 2014 Gastrointestinal No diarrhea 08/25/2014 Gastrointestinal No gastroesophageal reflux 08/25/2014 Gastrointestinal No nausea 08/25/2014 Gastrointestinal No vomiting 08/25/2014 Genitourinary/Nephrology No dysuria 08/25 Genitourinary/Nephrology No nocturia Genitourinary/Nephrology No urinary incontinence 08/25/2014 Musculoskeletal No stiffness 08/25/2014 Musculoskeletal No swelling 08/25/2014 Musculoskeletal No muscle weakness 2014 Musculoskeletal No myalgias 08/25/2014 Dermatologic No rash 08/25/2014 Dermatologic No sores 08/25/2014 Dermatologic No scar 08/25/2014 Neurologic No dizziness 08/25/2014 Neurologic No headache 08/25/2014 Neurologic No neck pain 08/25/2014 Neurologic No syncope 08/25/2014 Psychiatric No anxiety 08/25/2014 Psychiatric No depression 08/25/2014 Physical Exam Exam Name System Name Item Name Status Result Effective Dates Notes Full Exam - General 1994 Constitutional general appearance Development: well developed 03/06/2018 None Full Exam - General 1994 Constitutional general appearance Development: appears stated age 0103/06/2018 None Full Exam - General 1994 Constitutional general appearance Hygiene/Attention to Grooming: good hygiene 03/06/2018 None Full Exam - General 1994 Eyes conjunctiva /eyelids Overall: conjunctiva clear 03/06/2018 None Full Exam - General 1994 Eyes conjunctiva /eyelids Overall: cornea clear 03/06/2018 None Full Exam - General 1994 Eyes conjunctiva /eyelids Overall: eyelids normal 03/06/2018 None Full Exam - General 1994 Eyes pupils and irises Overall: pupils equal, round, reactive to light and accomodation 03/06/2018 None Full Exam - General 1994 Ears/Nose/Throat otoscopic exam Overall: external auditory canals clear 03/06/2018 None Full Exam - General 1994 Ears/Nose/Throat otoscopic exam Overall: tympanic membranes clear 03/06/2018 None Full Exam - General 1994 Ears/Nose/Throat lips/teeth/gingiva Overall: benign lips 03/06/2018 None Full Exam - General 1995 Ears/Nose/Throat lips/teeth/gingiva Overall: normal dentition 03/06/2018 None Full Exam - General 1995 Ears/Nose/Throat oral cavity/pharynx/larynx Overall: oral mucosa clear 03/06/2018 None Full Exam - General 1995 Ears/Nose/Throat oral cavity/pharynx/larynx Overall: oropharyngeal mucosa clear 03/06/2018 None Full Exam - General 1994 Ears/Nose/Throat oral cavity/pharynx/larynx Overall: hypopharynx benign 03/06/2018 None Full Exam - General 1994 Ears/Nose/Throat oral cavity/pharynx/larynx Overall: no masses 03/06/2018 None Full Exam - General 1994 Respiratory auscultation Overall: breath sounds clear bilaterally 03/06/2018 None Full Exam - General 1994 Respiratory respiratory effort/rhythm Overall: no retractions 03/06/2018 None Full Exam - General 1994 Respiratory respiratory effort/rhythm Overall: normal rate 03/06/2018 None Full Exam - General 1994 Cardiovascular extremities Overall: no clubbing 03/06/2018 None Full Exam - General 1994 Cardiovascular auscultation of heart Overall: regular rate 03/06/2018 None Full Exam - General 1994 Cardiovascular auscultation of heart Overall: normal heart sounds 03/06/2018 None Full Exam - General 1994 Abdomen abdominal exam Overall: no tenderness 03/06/2018 None Full Exam - General 1994 Abdomen abdominal exam Overall: normal bowel sounds 03/06/2018 None Full Exam - General 1994 Lymphatic neck nodes Overall: anterior cervical chain benign 03/06/2018 None Full Exam - General 1994 Lymphatic neck nodes Overall: posterior cervical chain benign 03/06/2018 None Full Exam - General 1994 Musculoskeletal spine, ribs and pelvis Overall: spine benign 03/06/2018 None Full Exam - General 1994 Musculoskeletal spine, ribs and pelvis Overall: sacroiliac joint benign 03/06/2018 None Full Exam - General 1994 Musculoskeletal spine, ribs and pelvis Overall: good posture 03/06/2018 None Full Exam - General 1994 Musculoskeletal head and neck Overall: head atraumatic 03/06/2018 None Full Exam - General 1994 Musculoskeletal head and neck Overall: cervical spine benign 03/06/2018 None Full Exam - General 1994 Neurologic deep tendon reflexes Overall: deep tendon reflexes intact 03/06/2018 None Full Exam - General 1994 Neurologic cranial nerves Overall: crainial nerves 2 - 12 grossly intact 03/06/2018 None Full Exam - General 1994 Psychiatric orientation/consciousness Overall: oriented to person, place and time 03/06/2018 None Full Exam - General 1994 Psychiatric mood and affect Mood: anxious 03/06/2018 None Full Exam - General 1994 Psychiatric mood and affect Mood: depressed 03/06/2018 None Full Exam - General 1994 Constitutional general appearance Development: well developed 02/19/2018 None Full Exam - General 1994 Constitutional general appearance Development: appears stated age 0102/19/2018 None Full Exam - General 1994 Constitutional general appearance Hygiene/Attention to Grooming: good hygiene 02/19/2018 None Full Exam - General 1994 Eyes conjunctiva /eyelids Overall: conjunctiva clear 02/19/2018 None Full Exam - General 1994 Eyes conjunctiva /eyelids Overall: cornea clear 02/19/2018 None Full Exam - General 1994 Eyes conjunctiva /eyelids Overall: eyelids normal 02/19/2018 None Full Exam - General 1994 Eyes pupils and irises Overall: pupils equal, round, reactive to light and accomodation 02/19/2018 None Full Exam - General 1994 Ears/Nose/Throat otoscopic exam Overall: external auditory canals clear 02/19/2018 None Full Exam - General 1994 Ears/Nose/Throat otoscopic exam Overall: tympanic membranes clear 02/19/2018 None Full Exam - General 1994 Ears/Nose/Throat lips/teeth/gingiva Overall: benign lips 02/19/2018 None Full Exam - General 1994 Ears/Nose/Throat lips/teeth/gingiva Overall: normal dentition 02/19/2018 None Full Exam - General 1994 Ears/Nose/Throat oral cavity/pharynx/larynx Overall: oral mucosa clear 02/19/2018 None Full Exam - General 1994 Ears/Nose/Throat oral cavity/pharynx/larynx Overall: oropharyngeal mucosa clear 02/19/2018 None Full Exam - General 1994 Ears/Nose/Throat oral cavity/pharynx/larynx Overall: hypopharynx benign 02/19/2018 None Full Exam - General 1994 Ears/Nose/Throat oral cavity/pharynx/larynx Overall: no masses 02/19/2018 None Full Exam - General 1994 Respiratory auscultation Overall: breath sounds clear bilaterally 02/19/2018 None Full Exam - General 1994 Respiratory respiratory effort/rhythm Overall: no retractions 02/19/2018 None Full Exam - General 1994 Respiratory respiratory effort/rhythm Overall: normal rate 02/19/2018 None Full Exam - General 1994 Cardiovascular extremities Overall: no clubbing 02/19/2018 None Full Exam - General 1994 Cardiovascular auscultation of heart Overall: regular rate 02/19/2018 None Full Exam - General 1994 Cardiovascular auscultation of heart Overall: normal heart sounds 02/19/2018 None Full Exam - General 1994 Abdomen abdominal exam Overall: no tenderness 02/19/2018 None Full Exam - General 1994 Abdomen abdominal exam Overall: normal bowel sounds 02/19/2018 None Full Exam - General 1994 Lymphatic neck nodes Overall: anterior cervical chain benign 02/19/2018 None Full Exam - General 1994 Lymphatic neck nodes Overall: posterior cervical chain benign 02/19/2018 None Full Exam - General 1994 Musculoskeletal spine, ribs and pelvis Overall: spine benign 02/19/2018 None Full Exam - General 1994 Musculoskeletal spine, ribs and pelvis Overall: sacroiliac joint benign 02/19/2018 None Full Exam - General 1994 Musculoskeletal spine, ribs and pelvis Overall: good posture 02/19/2018 None Full Exam - General 1994 Musculoskeletal head and neck Overall: head atraumatic 02/19/2018 None Full Exam - General 1994 Musculoskeletal head and neck Overall: cervical spine benign 02/19/2018 None Full Exam - General 1994 Neurologic deep tendon reflexes Overall: deep tendon reflexes intact 02/19/2018 None Full Exam - General 1994 Neurologic cranial nerves Overall: crainial nerves 2 - 12 grossly intact 02/19/2018 None Full Exam - General 1994 Psychiatric orientation/consciousness Overall: oriented to person, place and time 02/19/2018 None Full Exam - General 1994 Psychiatric mood and affect Overall: normal mood and affect 02/19/2018 None Full Exam - General 1994 Constitutional general appearance Development: well developed 08/25/2016 None Full Exam - General 1994 Constitutional general appearance Development: appears stated age 0708/25/2016 None Full Exam - General 1994 Constitutional general appearance Hygiene/Attention to Grooming: good hygiene 08/25/2016 None Full Exam - General 1994 Eyes conjunctiva /eyelids Overall: conjunctiva clear 08/25/2016 None Full Exam - General 1994 Eyes conjunctiva /eyelids Overall: cornea clear 08/25/2016 None Full Exam - General 1994 Eyes conjunctiva /eyelids Overall: eyelids normal 08/25/2016 None Full Exam - General 1994 Eyes pupils and irises Overall: pupils equal, round, reactive to light and accomodation 08/25/2016 None Full Exam - General 1994 Ears/Nose/Throat otoscopic exam Overall: external auditory canals clear 08/25/2016 None Full Exam - General 1994 Ears/Nose/Throat otoscopic exam Overall: tympanic membranes clear 08/25/2016 None Full Exam - General 1994 Ears/Nose/Throat lips/teeth/gingiva Overall: benign lips 08/25/2016 None Full Exam - General 1994 Ears/Nose/Throat lips/teeth/gingiva Overall: normal dentition 08/25/2016 None Full Exam - General 1994 Ears/Nose/Throat oral cavity/pharynx/larynx Overall: oral mucosa clear 08/25/2016 None Full Exam - General 1994 Ears/Nose/Throat oral cavity/pharynx/larynx Overall: oropharyngeal mucosa clear 08/25/2016 None Full Exam - General 1994 Ears/Nose/Throat oral cavity/pharynx/larynx Overall: hypopharynx benign 08/25/2016 None Full Exam - General 1994 Ears/Nose/Throat oral cavity/pharynx/larynx Overall: no masses 08/25/2016 None Full Exam - General 1994 Respiratory auscultation Overall: breath sounds clear bilaterally 08/25/2016 None Full Exam - General 1994 Respiratory respiratory effort/rhythm Overall: no retractions 08/25/2016 None Full Exam - General 1994 Respiratory respiratory effort/rhythm Overall: normal rate 08/25/2016 None Full Exam - General 1994 Cardiovascular extremities Overall: no clubbing 08/25/2016 None Full Exam - General 1994 Cardiovascular auscultation of heart Overall: regular rate 08/25/2016 None Full Exam - General 1994 Cardiovascular auscultation of heart Overall: normal heart sounds 08/25/2016 None Full Exam - General 1994 Abdomen abdominal exam Overall: no tenderness 08/25/2016 None Full Exam - General 1994 Abdomen abdominal exam Overall: normal bowel sounds 08/25/2016 None Full Exam - General 1994 Lymphatic neck nodes Overall: anterior cervical chain benign 08/25/2016 None Full Exam - General 1994 Lymphatic neck nodes Overall: posterior cervical chain benign 08/25/2016 None Full Exam - General 1994 Musculoskeletal spine, ribs and pelvis Overall: spine benign 08/25/2016 None Full Exam - General 1994 Musculoskeletal spine, ribs and pelvis Overall: sacroiliac joint benign 08/25/2016 None Full Exam - General 1994 Musculoskeletal spine, ribs and pelvis Overall: good posture 08/25/2016 None Full Exam - General 1994 Musculoskeletal head and neck Overall: head atraumatic 08/25/2016 None Full Exam - General 1994 Musculoskeletal head and neck Overall: cervical spine benign 08/25/2016 None Full Exam - General 1994 Integument inspection of skin Rash/Lesions: patch 08/25/2016 across upper back and shoulders - reddened lesion Full Exam - General 1994 Neurologic deep tendon reflexes Overall: deep tendon reflexes intact 08/25/2016 None Full Exam - General 1994 Neurologic cranial nerves Overall: crainial nerves 2 - 12 grossly intact 08/25/2016 None Full Exam - General 1994 Psychiatric orientation/consciousness Overall: oriented to person, place and time 08/25/2016 None Full Exam - General 1994 Psychiatric mood and affect Overall: normal mood and affect 08/25/2016 None Full Exam - General 1994 Neurologic sensation Touch: (specify location of deficit): light touch decreased 08/25/2016 None Full Exam - General 1994 Eyes conjunctiva /eyelids Overall: conjunctiva clear 10/26/2015 None Full Exam - General 1994 Eyes conjunctiva /eyelids Overall: cornea clear 10/26/2015 None Full Exam - General 1994 Eyes conjunctiva /eyelids Overall: eyelids normal 10/26/2015 None Full Exam - General 1994 Eyes pupils and irises Overall: pupils equal, round, reactive to light and accomodation 10/26/2015 None Full Exam - General 1994 Ears/Nose/Throat otoscopic exam Overall: external auditory canals clear 10/26/2015 None Full Exam - General 1994 Ears/Nose/Throat lips/teeth/gingiva Overall: benign lips 10/26/2015 None Full Exam - General 1994 Ears/Nose/Throat lips/teeth/gingiva Overall: normal dentition 10/26/2015 None Full Exam - General 1994 Ears/Nose/Throat oral cavity/pharynx/larynx Overall: oral mucosa clear 10/26/2015 None Full Exam - General 1994 Ears/Nose/Throat oral cavity/pharynx/larynx Overall: no masses 10/26/2015 None Full Exam - General 1994 Respiratory auscultation Overall: breath sounds clear bilaterally 10/26/2015 None Full Exam - General 1994 Respiratory respiratory effort/rhythm Overall: no retractions 10/26/2015 None Full Exam - General 1994 Respiratory respiratory effort/rhythm Overall: normal rate 10/26/2015 None Full Exam - General 1994 Cardiovascular extremities Overall: no clubbing 10/26/2015 None Full Exam - General 1994 Cardiovascular auscultation of heart Overall: regular rate 10/26/2015 None Full Exam - General 1994 Cardiovascular auscultation of heart Overall: normal heart sounds 10/26/2015 None Full Exam - General 1994 Musculoskeletal spine, ribs and pelvis Overall: good posture 10/26/2015 None Full Exam - General 1994 Musculoskeletal head and neck Overall: head atraumatic 10/26/2015 None Full Exam - General 1994 Neurologic cranial nerves Overall: crainial nerves 2 - 12 grossly intact 10/26/2015 None Full Exam - General 1994 Psychiatric orientation/consciousness Overall: oriented to person, place and time 10/26/2015 None Full Exam - General 1994 Psychiatric mood and affect Overall: normal mood and affect 10/26/2015 None Full Exam - General 1994 Constitutional general appearance Overall: well nourished 10/26/2015 None Full Exam - General 1994 Constitutional general appearance Overall: in no acute distress 10/26/2015 None Full Exam - General 1994 Constitutional general appearance Overall: well developed 10/26/2015 None Full Exam - General 1994 Ears/Nose/Throat otoscopic exam Tympanic membrane: air- fluid level 10/26/2015 None Full Exam - General 1994 Ears/Nose/Throat oral cavity/pharynx/larynx Posterior Pharynx: clear post nasal drainage 10/26/2015 None Full Exam - General 1994 Ears/Nose/Throat oral cavity/pharynx/larynx Oropharynx: erythema 10/26/2015 None Full Exam - General 1994 Lymphatic neck nodes Overall: shotty lymphadenopathy 10/26/2015 None Full Exam - General 1994 Psychiatric appearance Overall: well-groomed, good eye contact 10/26/2015 None Full Exam - General 1994 Psychiatric speech Overall: normal quality, no aphasia 10/26/2015 None Full Exam - General 1994 Psychiatric speech Overall: normal quality, quantity, rate 10/26/2015 None Full Exam - General 1994 Constitutional general appearance Development: well developed 08/24/2015 None Full Exam - General 1994 Constitutional general appearance Development: appears stated age 0708/24/2015 None Full Exam - General 1994 Constitutional general appearance Hygiene/Attention to Grooming: good hygiene 08/24/2015 None Full Exam - General 1994 Eyes conjunctiva /eyelids Overall: conjunctiva clear 08/24/2015 None Full Exam - General 1994 Eyes conjunctiva /eyelids Overall: cornea clear 08/24/2015 None Full Exam - General 1994 Eyes conjunctiva /eyelids Overall: eyelids normal 08/24/2015 None Full Exam - General 1994 Eyes pupils and irises Overall: pupils equal, round, reactive to light and accomodation 08/24/2015 None Full Exam - General 1994 Ears/Nose/Throat otoscopic exam Overall: external auditory canals clear 08/24/2015 None Full Exam - General 1994 Ears/Nose/Throat otoscopic exam Overall: tympanic membranes clear 08/24/2015 None Full Exam - General 1994 Ears/Nose/Throat lips/teeth/gingiva Overall: benign lips 08/24/2015 None Full Exam - General 1994 Ears/Nose/Throat lips/teeth/gingiva Overall: normal dentition 08/24/2015 None Full Exam - General 1994 Ears/Nose/Throat oral cavity/pharynx/larynx Overall: oral mucosa clear 08/24/2015 None Full Exam - General 1994 Ears/Nose/Throat oral cavity/pharynx/larynx Overall: oropharyngeal mucosa clear 08/24/2015 None Full Exam - General 1994 Ears/Nose/Throat oral cavity/pharynx/larynx Overall: hypopharynx benign 08/24/2015 None Full Exam - General 1994 Ears/Nose/Throat oral cavity/pharynx/larynx Overall: no masses 08/24/2015 None Full Exam - General 1994 Respiratory auscultation Overall: breath sounds clear bilaterally 08/24/2015 None Full Exam - General 1994 Respiratory respiratory effort/rhythm Overall: no retractions 08/24/2015 None Full Exam - General 1994 Respiratory respiratory effort/rhythm Overall: normal rate 08/24/2015 None Full Exam - General 1994 Cardiovascular extremities Overall: no clubbing 08/24/2015 None Full Exam - General 1994 Cardiovascular auscultation of heart Overall: regular rate 08/24/2015 None Full Exam - General 1994 Cardiovascular auscultation of heart Overall: normal heart sounds 08/24/2015 None Full Exam - General 1994 Abdomen abdominal exam Overall: no tenderness 08/24/2015 None Full Exam - General 1994 Abdomen abdominal exam Overall: normal bowel sounds 08/24/2015 None Full Exam - General 1994 Lymphatic neck nodes Overall: anterior cervical chain benign 08/24/2015 None Full Exam - General 1994 Lymphatic neck nodes Overall: posterior cervical chain benign 08/24/2015 None Full Exam - General 1994 Musculoskeletal spine, ribs and pelvis Overall: spine benign 08/24/2015 None Full Exam - General 1994 Musculoskeletal spine, ribs and pelvis Overall: sacroiliac joint benign 08/24/2015 None Full Exam - General 1994 Musculoskeletal spine, ribs and pelvis Overall: good posture 08/24/2015 None Full Exam - General 1994 Musculoskeletal head and neck Overall: head atraumatic 08/24/2015 None Full Exam - General 1994 Musculoskeletal head and neck Overall: cervical spine benign 08/24/2015 None Full Exam - General 1994 Integument inspection of skin Rash/Lesions: patch 08/24/2015 across upper back and shoulders - reddened lesion Full Exam - General 1994 Neurologic deep tendon reflexes Overall: deep tendon reflexes intact 08/24/2015 None Full Exam - General 1994 Neurologic cranial nerves Overall: crainial nerves 2 - 12 grossly intact 08/24/2015 None Full Exam - General 1994 Psychiatric orientation/consciousness Overall: oriented to person, place and time 08/24/2015 None Full Exam - General 1994 Psychiatric mood and affect Overall: normal mood and affect 08/24/2015 None Full Exam - General 1994 Constitutional general appearance Development: well developed 08/25/2014 None Full Exam - General 1994 Constitutional general appearance Development: appears stated age 0708/25/2014 None Full Exam - General 1994 Constitutional general appearance Hygiene/Attention to Grooming: good hygiene 08/25/2014 None Full Exam - General 1994 Eyes conjunctiva /eyelids Overall: conjunctiva clear 08/25/2014 None Full Exam - General 1994 Eyes conjunctiva /eyelids Overall: cornea clear 08/25/2014 None Full Exam - General 1994 Eyes conjunctiva /eyelids Overall: eyelids normal 08/25/2014 None Full Exam - General 1994 Eyes pupils and irises Overall: pupils equal, round, reactive to light and accomodation 08/25/2014 None Full Exam - General 1994 Ears/Nose/Throat otoscopic exam Overall: external auditory canals clear 08/25/2014 None Full Exam - General 1994 Ears/Nose/Throat otoscopic exam Overall: tympanic membranes clear 08/25/2014 None Full Exam - General 1994 Ears/Nose/Throat lips/teeth/gingiva Overall: benign lips 08/25/2014 None Full Exam - General 1994 Ears/Nose/Throat lips/teeth/gingiva Overall: normal dentition 08/25/2014 None Full Exam - General 1994 Ears/Nose/Throat oral cavity/pharynx/larynx Overall: oral mucosa clear 08/25/2014 None Full Exam - General 1994 Ears/Nose/Throat oral cavity/pharynx/larynx Overall: oropharyngeal mucosa clear 08/25/2014 None Full Exam - General 1994 Ears/Nose/Throat oral cavity/pharynx/larynx Overall: hypopharynx benign 08/25/2014 None Full Exam - General 1994 Ears/Nose/Throat oral cavity/pharynx/larynx Overall: no masses 08/25/2014 None Full Exam - General 1994 Respiratory auscultation Overall: breath sounds clear bilaterally 08/25/2014 None Full Exam - General 1994 Respiratory respiratory effort/rhythm Overall: no retractions 08/25/2014 None Full Exam - General 1994 Respiratory respiratory effort/rhythm Overall: normal rate 08/25/2014 None Full Exam - General 1994 Cardiovascular extremities Overall: no clubbing 08/25/2014 None Full Exam - General 1994 Cardiovascular auscultation of heart Overall: regular rate 08/25/2014 None Full Exam - General 1994 Cardiovascular auscultation of heart Overall: normal heart sounds 08/25/2014 None Full Exam - General 1994 Abdomen abdominal exam Overall: no tenderness 08/25/2014 None Full Exam - General 1994 Abdomen abdominal exam Overall: normal bowel sounds 08/25/2014 None Full Exam - General 1994 Lymphatic neck nodes Overall: anterior cervical chain benign 08/25/2014 None Full Exam - General 1994 Lymphatic neck nodes Overall: posterior cervical chain benign 08/25/2014 None Full Exam - General 1994 Musculoskeletal spine, ribs and pelvis Overall: spine benign 08/25/2014 None Full Exam - General 1994 Musculoskeletal spine, ribs and pelvis Overall: sacroiliac joint benign 08/25/2014 None Full Exam - General 1994 Musculoskeletal spine, ribs and pelvis Overall: good posture 08/25/2014 None Full Exam - General 1994 Musculoskeletal head and neck Overall: head atraumatic 08/25/2014 None Full Exam - General 1994 Musculoskeletal head and neck Overall: cervical spine benign 08/25/2014 None Full Exam - General 1994 Neurologic deep tendon reflexes Overall: deep tendon reflexes intact 08/25/2014 None Full Exam - General 1994 Neurologic cranial nerves Overall: crainial nerves 2 - 12 grossly intact 08/25/2014 None Full Exam - General 1994 Psychiatric orientation/consciousness Overall: oriented to person, place and time 08/25/2014 None Full Exam - General 1994 Psychiatric mood and affect Overall: normal mood and affect 08/25/2014 None Full Exam - General 1994 Integument inspection of skin Rash/Lesions: patch 08/25/2014 across upper back and shoulders - reddened lesion Procedures Procedure Codes Date PPPS, SUBSEQ VISIT CPT -4: [id number] 03/06/2018 Vital Signs Date Vital 03/06/2018 Blood Pressure 1: 130/76 Code : 8480-6 BMI: 31.0 Code : 43477-6 Heart Rate 1 : 79 bpm Height: 6'1" SpO2: 94% Waist Measure (cm): 97 cm Weight: 235 lbs 02/19/2018 Blood Pressure 1: 140/80 Code : 8480-6 BMI: 30.9 Code : 85873-5 Heart Rate 1 : 74 bpm Height: 6'1" SpO2: 95% Weight: 234 lbs 08/25/2016 Blood Pressure 1: 132/82 Code : 8480-6 BMI: 30.1 Code : 43311-4 Heart Rate 1 : 78 bpm Height: 6'1" SpO2: 95% Weight: 228 lbs 10/26/2015 Blood Pressure 1: 124/80 Code : 8480-6 BMI: 30.6 Code : 44956-5 Heart Rate 1 : 91 bpm Height: 6'1" SpO2: 98% Weight: 232 lbs 08/24/2015 Blood Pressure 1: 130/84 Code : 8480-6 BMI: 30.5 Code : 71918-3 Heart Rate 1 : 78 bpm Height: 6'1" SpO2: 98% Weight: 231 lbs 08/25/2014 Blood Pressure 1: 122/78 Code : 8480-6 BMI: 28.6 Code : 14838-9 Heart Rate 1 : 68 bpm Height: 6'1" Weight: 217 lbs Functional Status No Functional Status data History of Present Illness Symptom Name Status Result Effective Date Notes Alcohol Use does not drink any alcohol 03/06/2018 None Aspirin Use no 2018 None Describe Your Health fair 03/06/2018 None Blood Glucose (self reported) don't know 03/06/2018 None Cholesterol (self reported) don't know 03/06/2018 None Hemaglobin A-1C (self reported) don't know 03/06/2018 None Blood Pressure (self reported) borderline (120/80 - 139/89) 03/06/2018 None Hours of Sleep 4 None Interaction with Friends yes 03/06/2018 None Exercise Habits does not exercise 03/06/2018 None Life Satisfaction dissatisfied 03/06/2018 None Motor Vehicle Safety always fastens seat belt: yes 03/06/2018 None Motor Vehicle Safety drives after drinking: no 03/06/2018 None Motor Vehicle Safety rides with someone who has been drinking: no 03/06/2018 None Smoking and Tobacco Use non smoker 03/06/2018 None Sun Exposure protects skin when outdoors : yes 03/06/2018 None Depression (last 6 months) daily 03/06/2018 None Depression or Hopelessness daily 03/06/2018 None Handling Stress has problems coping 03/06/2018 None Interests & Pleasure daily 03/06/2018 None Social & Emotional Support never 03/06/2018 None Stress daily 2018 None Nutrition servings of fried food / high fat foods per day: 0-1 03/06/2018 None Nutrition servings of high fiber / whole grain per day: 1 03/06/2018 None Nutrition servings of vegetables / fruit per day: 2 03/06/2018 None Location on both feet 02/19/2018 None Quality constant None Onset and Resolution ongoing 02/19/2018 None Onset of Symptom 3-4 years ago 02/19/2018 None Limitation on Activities does not limit activities 02/19/2018 None Frequency of Episodes daily 02/19/2018 None Pertinent Findings Denies dizziness 02/19/2018 None Pertinent Findings Denies syncope 02/19/2018 None Significant Medical Conditions trauma 02/19/2018 None Triggers no known associated factors 02/19/2018 None paresthesia Location bilaterally 08/25/2016 None paresthesia Quality chronic 08/25/2016 None paresthesia Onset and Resolution ongoing 08/25/2016 None paresthesia Onset of Symptom _ years ago 08/25/2016 None paresthesia Limitation on Activities moderately limits activities 08/25/2016 None paresthesia Frequency of Episodes hourly 08/25/2016 None paresthesia Pertinent Findings back pain 08/25/2016 None paresthesia Pertinent Findings neck pain 08/25/2016 None sinus congestion Location on both sides 10/26/2015 None sinus congestion Quality constant 10/26/2015 None sinus congestion Quality pressure 10/26/2015 None sinus congestion Quality fullness 10/26/2015 None sinus congestion Onset and Resolution sudden in onset 10/26/2015 None sinus congestion Onset of Symptom 1 weeks ago 10/26/2015 None sinus congestion Frequency of Episodes daily 10/26/2015 None cough Location in the throat 10/26/2015 None cough Quality constant 10/26/2015 None cough Quality dry None cough Quality productive 10/26/2015 None cough Onset and Resolution sudden in onset 10/26/2015 None cough Onset of Symptom 1 weeks ago 10/26/2015 None cough Frequency of Episodes daily 10/26/2015 None earache Location both ears 10/26/2015 None earache Onset and Resolution sudden in onset 10/26/2015 None earache Onset of Symptom 1 weeks ago 10/26/2015 None earache Frequency of Episodes daily 10/26/2015 None low back pain Location lumbar spine 08/24/2015 None low back pain Quality chronic 08/24/2015 None low back pain Quality constant 08/24/2015 None low back pain Quality improving 08/24/2015 None low back pain Onset and Resolution gradual in onset 08/24/2015 None low back pain Onset and Resolution ongoing 08/24/2015 None low back pain Limitation on Activities allows weight bearing activity 08/24/2015 None foot pain Location on the right 08/24/2015 None foot pain Location on the left 08/24/2015 None foot pain Quality numbness 08/24/2015 None foot pain Quality intermittent 08/24/2015 None foot pain Onset of Symptom months ago 08/24/2015 since his back surgery weight gain/obesity Location on the abdomen 08/24/2015 None weight gain/obesity Quality worsening 08/24/2015 None weight gain/obesity Onset and Resolution ongoing 08/24/2015 None weight gain/obesity Onset and Resolution gradual in onset 08/24/2015 None back pain Quality aching 08/25/2014 None back pain Quality dull 08/25/2014 None back pain Onset and Resolution ongoing 08/25/2014 None lower leg pain Quality constant 08/25/2014 None lower leg pain Quality burning sensation 08/25/2014 None lower leg pain Quality cramping 08/25/2014 None lower leg pain Onset and Resolution ongoing 08/25/2014 None lower leg pain Onset of Symptom 2 years ago 08/25/2014 None lower leg pain Frequency of Episodes daily 08/25/2014 None lower leg pain Pertinent Findings pain with movement 08/25/2014 None lower leg pain Pertinent Findings numbness 08/25/2014 None Advance Directives No Advance Directive data Encounters Encounter Performer Location Codes Date ([id number]) [id number] EST. PATIENT, LEVEL IV Diagnosis: Other idiopathic peripheral autonomic neuropathy[ICD10: G90.09] Diagnosis: Generalized anxiety disorder[ICD10: F41.1] Brenda Figueroa MD, [facility] CPT-4: 23944 02/19/2018 ([id number]) Miscellaneous no charge Diagnosis: Encounter for removal of sutures[ICD10: Z48.02] [facility] CPT-4: 40060 06/28/2017 ([id number]) 24463 EST. PATIENT, LEVEL IV Diagnosis: Other idiopathic peripheral autonomic neuropathy[ICD10: G90.09] Agueda Figueroa MD, [facility] CPT-4: 60060 08/25/2016 46989 EST. PATIENT, LEVEL IV Diagnosis: Acute laryngopharyngitis[ICD10: J06.0] Diagnosis: Other allergic rhinitis[ICD10: J30.89] [facility] CPT-4: 29494 10/26/2015 ([id number]) PREV VISIT EST AGE 40-64 Diagnosis: Encounter for general adult medical examination without abnormal findings[ICD10: Z00.00] Agueda Figueroa MD, [facility] CPT-4: 78315 08/24/2015 ([id number]) OFFICE VISIT, NEW - LEVEL 3 Diagnosis: Peripheral neuropathy[ICD9: 356.9] Diagnosis: Tinea[ICD9: 110.9] Agueda Figueroa MD, [facility] CPT-4: 05818 08/25/2014 Plan of Care Planned Activity Notes Codes Status Date Visit Plan: Medicare Exam - today we discussed the patients past history, immunizations, preventative exams/evaluations - colonoscopy, fecal occult blood testing, routine labs for renal function, glucose, cholesterol, osteoporosis evaluations, cardiovascular testing and cancer screenings. We have also discussed mental health and the signs/symptoms of depression. The patient was advised of home safety evaluations and the need to make sure that as the aging process continues, we need to be aware of different ways to make the home a safer place to reside. The patient has also been counseled that exercise is necessary - and of utmost importance as we age to help decrease fall risk and to maintain independence in the home. Today we discussed the need for the patient to create paperwork for Advanced directives as well as for the patient to provide this office with a copy of her DOPA paperwork for health care surrogate. Depression/anxiety- uncontrolled - Pt has been counseled about the diagnosis of depression, the potential causes, and risks associated with the diagnosis. The pt denies suicidal ideation, or plans. The patient has been counseled about treatment options, and understands the risks associated with treatment of depression, as well as the risks associated with NOT treating the depression. I believe the pt will benefit from medical intervention and an antidepressant has been appropriately prescribed for this patient. Elevated liver enzymes -avoid alcohol -limit tylenol -repeat labs in 1 month to monitor 03/06/2018 Appointment: Brenda Arce WPtel: [phone] [phone] [facility] - Annual Wellness Visit 03/06/2018 Patient Education: Patient Medication Summary Completed 03/06/2018 Patient Education: [facility] - Saving [employer] - 18-64 - Dynamic Portal ID Completed 03/06/2018 Patient Education: Patient Medication Summary Completed 02/22/2018 Visit Plan: Peripheral neuropathy- uncontrolled-patient has not tolerated medication-recommend he follow up with Dr Marquez for further evaluation -also discussed PT -patient will consider Anxiety-not well controlled -due to stress of brother with dementia-recommend Lan contact the director social at the [facility] to see if they can help with his brother-patient is not interested in medication at this time -will consider if symptoms do no improve or if any worse. 02/19/2018 Appointment: Brenda Arce WPtel: [phone] (30 min) Complex 02/19/2018 Patient Education: Patient Medication Summary Completed 02/19/2018 Appointment: Nurse Visit 06/28/2017 Patient Education: Patient Medication Summary Completed 06/28/2017 Visit Plan: Peripheral Neuropathy - uncontrolled symptoms - pt has been instructed to hold the gabapentin for now - start on lyrica - take one pill three times daily - you have a two week sample supply - so call and let us know if the medication is working for your symptoms of nerve pain in your feet - if not - we can increase the dose up to 100mg three times daily or 150mg three times daily. 08/25/2016 Appointment: Agueda Figueroa WPtel: [phone] [facility] (15 min) Moderate 08/25/2016 Patient Education: Patient Medication Summary Completed 08/25/2016 Patient Education: Obesity Completed 08/25/2016 Visit Plan: Allergies - chronic - recommended pt to use allergy medication as prescribed. Pt has been counseled as to the appropriate use of the medication. Pt to call if allergy symptoms are not controlled with the medication. If using nasal spray, instructions as follows: Nasal spray- use twice daily, one spray per nostril twice daily, after 30 minutes, rinse out nose with saline spray.. Use opposite hand per nostril to spray in the nasal steroid allergy spray. URI - Pt advised to increase fluids, vitamin C. Discussed natural and expected course of this diagnosis and need to alert me if symptoms do not follow expected course, or if any worse. RX sent to patient's pharmacy. 10/26/2015 Appointment: [facility] [phone] [facility] [address] (30 min) Complex 10/26/2015 Patient Education: Patient Medication Summary Completed 10/26/2015 Patient Education: Obesity Completed 10/26/2015 Visit Plan: Well Adult - pt was counseled about diet, exercise, and encouraged to follow a heart healthy diet and increase activity level. The patient was instructed to RTC yearly for well adult exams and PRN for acute illnesses. The pt was also instructed to have yearly labs for check of cholesterol, thyroid, chem panel, CBC, and renal functioning. 08/24/2015 Appointment: [phone] (15 min) Moderate 08/24/2015 Patient Education: Patient Medication Summary Completed 08/24/2015 Patient Education: Obesity Completed 08/24/2015 Visit Plan: Peripheral neuropathy - continue with chronic gabapentin use - monitor symptoms. Rash across back - recommended pt to start on ketoconazole shampoo and call if not improving. 08/25/2014 Visit Plan: Peripheral neuropathy - continue with chronic gabapentin use - monitor symptoms. Rash across back - recommended pt to start on ketoconazole shampoo and call if not improving. 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 I made recommendations for a referral to Dr. Mcclure at [address] for follow up and further recommendations for imaging and treatment of his medical complications after a remote work related injury that was treated by his previous physician. 08/25/2014 Appointment: Agueda Figueroa WPtel: [facility] [place] [facility] New Patient 08/25/2014 Patient Education: Patient Medication Summary Completed 08/25/2014 Instructions Comment hold the gabapentin for now - start on lyrica - take one pill three times daily - you have a two week sample supply - so call and let us know if the medication is working for your symptoms of nerve pain in your feet - if not - we can increase the dose up to 100mg three times daily or 150mg three times daily. . Peripheral Neuropathy - uncontrolled symptoms - pt has been instructed to hold the gabapentin for now - start on lyrica - take one pill three times daily - you have a two week sample supply - so call and let us know if the medication is working for your symptoms of nerve pain in your feet - if not - we can increase the dose up to 100mg three times daily or 150mg three times daily. . Peripheral neuropathy- uncontrolled-patient has not tolerated medication-recommend he follow up with Dr Marquez for further evaluation -also discussed PT -patient will consider Anxiety-not well controlled-due to stress of brother with dementia-recommend Lan contact the director social at the [facility] to see if they can help with his brother -patient is not interested in medication at this time -will consider if symptoms do no improve or if any worse. look up isometric exercises that you can do for your abdomen. . Well Adult - pt was counseled about diet, exercise, and encouraged to follow a heart healthy diet and increase activity level. The patient was instructed to RTC yearly for well adult exams and PRN for acute illnesses. The pt was also instructed to have yearly labs for check of cholesterol, thyroid, chem panel, CBC, and renal functioning. . Peripheral neuropathy - continue with chronic gabapentin use - monitor symptoms. Rash across back - recommended pt to start on ketoconazole shampoo and call if not improving. . Peripheral neuropathy - continue with chronic gabapentin use - monitor symptoms. Rash across back - recommended pt to start on ketoconazole shampoo and call if not improving. 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 I made recommendations for a referral to Dr. Mcclure at [address] for follow up and further recommendations for imaging and treatment of his medical complications after a remote work related injury that was treated by his previous physician. zyrtec and flonase over the counter for the next couple of day. . Allergies - chronic - recommended pt to use allergy medication as prescribed. Pt has been counseled as to the appropriate use of the medication. Pt to call if allergy symptoms are not controlled with the medication. If using nasal spray, instructions as follows: Nasal spray- use twice daily, one spray per nostril twice daily, after 30 minutes, rinse out nose with saline spray.. Use opposite hand per nostril to spray in the nasal steroid allergy spray. URI - Pt advised to increase fluids, vitamin C. Discussed natural and expected course of this diagnosis and need to alert me if symptoms do not follow expected course, or if any worse. RX sent to patient's pharmacy. LEXAPRO 10MG DAILY FOLLOW UP IN 1 MONTH repeat liver enzymes in 1 month recommend shingles vaccine zyrtec 10mg daily for nasal congestion . Medicare Exam - today we discussed the patients past history, immunizations, preventative exams/evaluations - colonoscopy, fecal occult blood testing, routine labs for renal function, glucose, cholesterol, osteoporosis evaluations, cardiovascular testing and cancer screenings. We have also discussed mental health and the signs/symptoms of depression. The patient was advised of home safety evaluations and the need to make sure that as the aging process continues, we need to be aware of different ways to make the home a safer place to reside. The patient has also been counseled that exercise is necessary - and of utmost importance as we age to help decrease fall risk and to maintain independence in the home. Today we discussed the need for the patient to create paperwork for Advanced directives as well as for the patient to provide this office with a copy of her DOPA paperwork for health care surrogate. Depression/anxiety- uncontrolled - Pt has been counseled about the diagnosis of depression, the potential causes, and risks associated with the diagnosis. The pt denies suicidal ideation, or plans. The patient has been counseled about treatment options, and understands the risks associated with treatment of depression, as well as the risks associated with NOT treating the depression. I believe the pt will benefit from medical intervention and an antidepressant has been appropriately prescribed for this patient. Elevated liver enzymes -avoid alcohol -limit tylenol -repeat labs in 1 month to monitor
[2018-03-23 10:20] VITALS: BP 138/98
--- OUTSIDE RECORDS SUMMARY | 2018-03-23 10:20 | XMS REPORT | CCD ---
Author Author Agueda Figueroa Organization [facility] Address [address] [place] [address] Phone Care Team Providers Care Last Putter Away Name Role Phone PP Unavailable CCM Unavailable Summary Purpose Interface Exchange Insurance Providers Payer name Policy type / Coverage type Covered constitution party ID Effective Begin Date Effective End Date WPS Medicare Part B Medicare Part B [id number] Unknown [employer] Medicare Part B [id number] Unknown Family history Sister Diagnosis Age At [...] Unknown Sandra 08/24/[address]: 402166378 Never smoker 08/25/[address]: 269597914 Never drinks alcohol 08/25/2014 Allergies, Adverse Reactions, [...] Fill Instructions Lexapro 10 mg tablet RxNorm: 285341 1 Tablet(s) PO QPM 201809/01/2018 Active start with 1/2 pill x 1 week then increase to a full pill Lyrica 100 mg capsule RxNorm: 229585 1 Capsule(s) PO TID 201602/18/2018 Inactive Lyrica 75 mg capsule RxNorm: 574920 1 Capsule(s) PO TID 201609/07/2016 Inactive gabapentin 300 mg capsule RxNorm: 579957 Capsule(s) TAKE ONE CAPSULE BY MOUTH THREE TIMES DAILY 01/28/2016 08/24/2016 Inactive Tessalon Perles 100 mg capsule RxNorm: 721773 1 Capsule(s) PO TID as needed 10/26/2015 10/30/2015 Inactive amoxicillin 500 mg capsule RxNorm: 758458 1 Capsule(s) PO TID 10/26/2015 11/01/2015 Inactive Fish Oil 1,000 mg capsule RxNorm: 1 Capsule(s) PO BID 201510/10/2015 Inactive gabapentin 300 mg capsule RxNorm: 799298 Capsule(s) TAKE ONE CAPSULE BY MOUTH THREE TIMES DAILY 08/13/2015 01/27/2016 Inactive Generic For:NEURONTIN 300MG N O T I C E PRESCRIPTION PREVIOUSLY AUTHORIZED BY DOCTOR:ZEKE LANCASTER [phone] gabapentin 300 mg capsule RxNorm: 111864 Capsule(s) TAKE ONE CAPSULE BY MOUTH THREE TIMES DAILY 03/10/2015 08/12/2015 Inactive Generic For:NEURONTIN 300MG N O T I C E PRESCRIPTION PREVIOUSLY AUTHORIZED BY DOCTOR:ZEKE LANCASTER gabapentin 300 mg capsule RxNorm: 302367 Capsule(s) TAKE ONE CAPSULE BY MOUTH THREE TIMES DAILY 03/10/2015 03/09/2015 Inactive Generic For:NEURONTIN 300MG N O T I C E PRESCRIPTION PREVIOUSLY AUTHORIZED BY DOCTOR:ZEKE LANCASTER gabapentin 300 mg capsule RxNorm: 014877 TAKE ONE CAPSULE BY MOUTH THREE TIMES DAILY 11/28/2014 03/09/2015 Inactive Generic For:NEURONTIN 300MG N O T I C E PRESCRIPTION PREVIOUSLY AUTHORIZED BY DOCTOR:ZEKE LANCASTER ketoconazole 2 % shampoo RxNorm: 595064 1 Application TOP daily 08/25/2014 08/31/2014 Inactive gabapentin 300 mg capsule RxNorm: 048677 1 Capsule(s) PO TID No Start Date 11/27/2014 Inactive Medication Administered No Medication Administered data Immunizations Vaccine Codes Date Status Influenza CVX: 141 11/06/2013 completed Assessments Condition Codes Effective Dates Encounter for general adult medical examination with abnormal findings ICD-10: Z00.01 ICD-9: V70.0 03/06/2018 Abnormal results of liver function studies ICD-10: R94.5 ICD-9: 794.8 02/22/2018 Other idiopathic peripheral autonomic neuropathy ICD-10: G90.09 ICD-9: 337.00 02/19/2018 Generalized anxiety disorder ICD-10: F41.1 ICD-9: 300.02 02/19/2018 Encounter for removal of sutures ICD-10: Z48.02 ICD-9: V58.32 06/28/2017 Other allergic rhinitis ICD-10: J30.89 ICD-9: 477.8 10/26/2015 Acute laryngopharyngitis ICD-10: J06.0 ICD-9: 465.0 10/26/2015 Polyneuropathy, unspecified ICD-10: G62.9 ICD-9: 356.9 08/24/2015 Encounter for general adult medical examination without abnormal findings ICD-10: Z00.00 ICD-9: V70.0 08/24/2015 Peripheral neuropathy ICD-9: 356.9 2014 Tinea ICD-9: 110.9 08/25/2014 Reason For Visit Reason For Visit Effective Dates Notes Annual Medicare Wellness Exam 03/06/2018 paresthesia 02/19/2018 paresthesia 08/25/2016 sinus congestion 10/26/2015 weight gain/obesity 08/24/2015 back pain 08/25/2014 Results Observation Observation Code Item Item Code Result Date Hepatitis Panel (Abc) 52529 HEPATITIS B SURFACE AG . Hepatitis Panel (Abc) 82533 HEPATITIS B SURFACE AG NEGATIVE 02/23/2018 Hepatitis Panel (Abc) 29069 HEPATITIS B CORE AB, IGM . Hepatitis Panel (Abc) 24112 HEPATITIS B CORE AB, IGM NEGATIVE 02/23/2018 Hepatitis Panel (Abc) 56490 HEPATITIS A AB, IGM . 2018 Hepatitis Panel (Abc) 61493 HEPATITIS A AB, IGM NEGATIVE Hepatitis Panel (Abc) 96698 HEPATITIS C ANTIBODY . 2018 Hepatitis Panel (Abc) 79042 HEPATITIS C ANTIBODY NEGATIVE Total Psa Ord10 PSA 0.34 ng/mL 02/20/2018 Cbc With Differential Ord2 WBC 6.67 K/ul 02/20/2018 Cbc With Differential Ord2 RBC 5.83 M/ul 02/20/2018 Cbc With Differential Ord2 HGB 16.8 g/dl 02/20/2018 Cbc With Differential Ord2 HCT 49.1 % 02/20/2018 Cbc With Differential Ord2 Neut% 47.2 % 02/20/2018 Cbc With Differential Ord2 MCV 84.2 fl 02/20/2018 Cbc With Differential Ord2 Lymph% 35.2 % 02/20/2018 Cbc With Differential Ord2 MCH 28.8 pg 02/20/2018 Cbc With Differential Ord2 [place]% 11.8 % 02/20/2018 Cbc With Differential Ord2 MCHC 34.2 pg 02/20/2018 Cbc With Differential Ord2 Eos% 5.1 % 02/20/2018 Cbc With Differential Ord2 PLT 226 K/ul 02/20/2018 Cbc With Differential Ord2 Baso% 0.7 % 02/20/2018 Cbc With Differential Ord2 RDW 14.0 % 02/20/2018 Cbc With Differential Ord2 Neut ABS# 3.14 K/ul 02/20/2018 Cbc With Differential Ord2 Lymph ABS# 2.35 K/ul 02/20/2018 Cbc With Differential Ord2 [place] ABS# 0.8 K/ul 02/20/2018 Cbc With Differential Ord2 Eos ABS# 0.3 K/ul 02/20/2018 Cbc With Differential Ord2 Baso ABS# 0.1 K/ul 02/20/2018 Lipid Ord30 CHOL 194 mg/dL 02/20/2018 Lipid Ord30 HDL 38.0 mg/dl 02/20/2018 Lipid Ord30 TRIG 223 mg/dL 02/20/2018 Lipid Ord30 LDL 111 mg/dL 02/20/2018 Lipid Ord30 C/HDL 5.1 Ratio 02/20/2018 Tsh Ord6 TSH (3rd IS) 2.12 uIU/mL 02/20/2018 Comp Metabolic Foa721 NA 139 mEq/L 02/20/2018 Comp Metabolic Abq223 K 4.5 mEq/L 02/20/2018 Comp Metabolic Psz501 CL 101 mEq/L 02/20/2018 Comp Metabolic Mmb314 CO2 31.0 mEq/L 02/20/2018 Comp Metabolic Nbr274 ANION GAP 12 02/20/2018 Comp Metabolic Gbs576 GLUCOSE 103 mg/dL 02/20/2018 Comp Metabolic Yai259 Creat 0.9 mg/dL 02/20/2018 Comp Metabolic Fun063 eGFR 92 ml/min/1.73m2 02/20/2018 Comp Metabolic Hvh752 BUN 12 mg/dL 02/20/2018 Comp Metabolic Pcb961 B/C Ratio 13.5 Ratio 02/20/2018 Comp Metabolic Mil897 CALCIUM 10.4 mg/dL 02/20/2018 Comp Metabolic Kgh645 ALK PHOS 71 U/L 02/20/2018 Comp Metabolic Erj876 AST(SGOT) 44 U/L 02/20/2018 Comp Metabolic Zll741 ALT(SGPT) 84 U/L 02/20/2018 Comp Metabolic Gho087 BILI T 0.8 mg/dL 02/20/2018 Comp Metabolic Bxs813 ALBUMIN 4.7 g/dL 02/20/2018 Comp Metabolic Oce289 TPRO 7.3 g/dL 02/20/2018 Comp Metabolic Nmi339 GLOB 2.6 g/dL 02/20/2018 Comp Metabolic Wqf933 A/G Ratio 1.8 Ratio 02/20/2018 Comp Metabolic Odi393 Osmo 278 mOsmo 02/20/2018 Comp Metabolic Nwj237 NA 140 mEq/L 08/26/2016 Comp Metabolic Twp643 K 4.8 mEq/L 08/26/2016 Comp Metabolic Eex209 CL 105 mEq/L 08/26/2016 Comp Metabolic Rdw529 CO2 28.0 mEq/L 08/26/2016 Comp Metabolic Nxg937 ANION GAP 12 08/26/2016 Comp Metabolic Djc148 GLUCOSE 96 mg/dL 08/26/2016 Comp Metabolic Xta760 Creat 1.0 mg/dL 08/26/2016 Comp Metabolic Sew030 eGFR 78 ml/min/1.73m2 08/26/2016 Comp Metabolic Wbq602 BUN 16 mg/dL 08/26/2016 Comp Metabolic Atu720 B/C Ratio 15.5 Ratio 08/26/2016 Comp Metabolic Dvv736 CALCIUM 9.6 mg/dL 08/26/2016 Comp Metabolic Kay382 ALK PHOS 74 U/L 08/26/2016 Comp Metabolic Qfv451 AST(SGOT) 30 U/L 08/26/2016 Comp Metabolic Rvj911 ALT(SGPT) 48 U/L 08/26/2016 Comp Metabolic Tgv985 BILI T 0.7 mg/dL 08/26/2016 Comp Metabolic Sox791 ALBUMIN 4.3 g/dL 08/26/2016 Comp Metabolic Mhw422 TPRO 7.1 g/dL 08/26/2016 Comp Metabolic Pmx584 GLOB 2.8 g/dL 08/26/2016 Comp Metabolic Oqi301 A/G Ratio 1.6 Ratio 08/26/2016 Comp Metabolic Npq925 Osmo 280 mOsmo 08/26/2016 Lipid Ord30 CHOL 181 mg/dL 08/26/2016 Lipid Ord30 HDL 42.0 mg/dl 08/26/2016 Lipid Ord30 TRIG 169 mg/dL 08/26/2016 Lipid Ord30 LDL 105 mg/dL 08/26/2016 Lipid Ord30 C/HDL 4.3 Ratio 08/26/2016 Tsh Ord6 hTSH II 1.55 uIU/mL 08/26/2016 B12 Vlh872 B12 545.00 pg/ml 08/26/2016 Cbc With Differential Ord2 WBC 7.61 K/ul 08/26/2016 Cbc With Differential Ord2 RBC 5.61 M/ul 08/26/2016 Cbc With Differential Ord2 HGB 16.2 g/dl 08/26/2016 Cbc With Differential Ord2 HCT 48.0 % 08/26/2016 Cbc With Differential Ord2 Neut% 56.5 % 08/26/2016 Cbc With Differential Ord2 MCV 85.6 fl 08/26/2016 Cbc With Differential Ord2 Lymph% 29.4 % 08/26/2016 Cbc With Differential Ord2 MCH 28.9 pg 08/26/2016 Cbc With Differential Ord2 [place]% 8.7 % 08/26/2016 Cbc With Differential Ord2 MCHC 33.8 pg 08/26/2016 Cbc With Differential Ord2 Eos% 4.9 % 08/26/2016 Cbc With Differential Ord2 PLT 210 K/ul 08/26/2016 Cbc With Differential Ord2 Baso% 0.5 % 08/26/2016 Cbc With Differential Ord2 RDW 13.9 % 08/26/2016 Cbc With Differential Ord2 Neut ABS# 4.30 K/ul 08/26/2016 Cbc With Differential Ord2 Lymph ABS# 2.24 K/ul 08/26/2016 Cbc With Differential Ord2 [place] ABS# 0.7 K/ul 08/26/2016 Cbc With Differential Ord2 Eos ABS# 0.4 K/ul 08/26/2016 Cbc With Differential Ord2 Baso ABS# 0.0 K/ul 08/26/2016 Folate Ord36 Folate 21.80 ng/mL 08/26/2016 Lipid Ord30 CHOL 205 mg/dL 08/24/2015 Lipid Ord30 HDL 39.0 mg/dl 08/24/2015 Lipid Ord30 TRIG 192 mg/dL 08/24/2015 Lipid Ord30 LDL 128 mg/dL 08/24/2015 Lipid Ord30 C/HDL 5.3 Ratio 08/24/2015 Comp Metabolic Ymh878 NA 136 mEq/L 08/24/2015 Comp Metabolic Nxv545 K 4.4 mEq/L 08/24/2015 Comp Metabolic Euy833 CL 102 mEq/L 08/24/2015 Comp Metabolic Ysd403 CO2 26.0 mEq/L 08/24/2015 Comp Metabolic Epu225 ANION GAP 12 08/24/2015 Comp Metabolic Rie182 GLUCOSE 85 mg/dL 08/24/2015 Comp Metabolic Xuf452 Creat 0.9 mg/dL 08/24/2015 Comp Metabolic Hss075 eGFR 87 ml/min/1.73m2 08/24/2015 Comp Metabolic Ywd043 BUN 14 mg/dL 08/24/2015 Comp Metabolic Jgc022 B/C Ratio 14.9 Ratio 08/24/2015 Comp Metabolic Tnb728 CALCIUM 9.5 mg/dL 08/24/2015 Comp Metabolic Neh673 ALK PHOS 80 U/L 08/24/2015 Comp Metabolic Dak287 AST(SGOT) 35 U/L 08/24/2015 Comp Metabolic Nkc845 ALT(SGPT) 58 U/L 08/24/2015 Comp Metabolic Wqa305 BILI T 0.8 mg/dL 08/24/2015 Comp Metabolic Cjn789 ALBUMIN 4.8 g/dL 08/24/2015 Comp Metabolic Cmy513 TPRO 7.3 g/dL 08/24/2015 Comp Metabolic Anv060 GLOB 2.5 g/dL 08/24/2015 Comp Metabolic Gkj937 A/G Ratio 1.9 Ratio 08/24/2015 Comp Metabolic Vct290 Osmo 272 mOsmo 08/24/2015 Tsh Ord6 hTSH II 2.26 uIU/mL 08/24/2015 Cbc With Differential Ord2 WBC 6.53 K/ul [...] 28.9 pg 08/24/2015 Cbc With Differential Ord2 [place]% 13.2 % 08/24/2015 Cbc With Differential Ord2 MCHC 33.8 pg 08/24/2015 Cbc With Differential Ord2 Eos% 3.2 % 08/24/2015 Cbc With Differential Ord2 PLT 218 K/ul 08/24/2015 Cbc With Differential Ord2 Baso% 0.3 % 08/24/2015 Cbc With Differential Ord2 RDW 14.3 % 08/24/2015 Cbc With Differential Ord2 Neut ABS# 3.17 K/ul 08/24/2015 Cbc With Differential Ord2 Lymph ABS# 2.27 K/ul 08/24/2015 Cbc With Differential Ord2 [place] ABS# 0.9 K/ul 08/24/2015 Cbc With Differential Ord2 Eos ABS# 0.2 K/ul 08/24/2015 Cbc With Differential Ord2 Baso ABS# 0.0 K/ul 08/24/2015 Lipid Ord30 CHOL 185 mg/dL 08/26/2014 Lipid Ord30 HDL 36.0 mg/dl 08/26/2014 Lipid Ord30 TRIG 274 mg/dL 08/26/2014 Lipid Ord30 LDL 94 mg/dL 08/26/2014 Lipid Ord30 C/HDL 5.1 Ratio 08/26/2014 Cbc With Differential Ord2 WBC 6.0 K/uL [...] With Differential Ord2 RDW 13.4 % 08/26/2014 Comp Metabolic Rdx643 NA 135 mEq/L 08/26/2014 Comp Metabolic Ueu322 K 4.7 mEq/L 08/26/2014 Comp Metabolic Rbh409 CL 101 mEq/L 08/26/2014 Comp Metabolic Slr022 CO2 29.0 mEq/L 08/26/2014 Comp Metabolic Gqe945 ANION GAP 10 08/26/2014 Comp Metabolic Tsn412 GLUCOSE 99 mg/dL 08/26/2014 Comp Metabolic Qiu051 Creat 0.9 mg/dL 08/26/2014 Comp Metabolic Udn913 eGFR 97 ml/min/1.73m2 08/26/2014 Comp Metabolic Ddd510 BUN 13 mg/dL 08/26/2014 Comp Metabolic Zmg576 B/C Ratio 15.1 Ratio 08/26/2014 Comp Metabolic Tww222 CALCIUM 9.7 mg/dL 08/26/2014 Comp Metabolic Cqf280 ALK PHOS 89 U/L 08/26/2014 Comp Metabolic Pmm716 AST(SGOT) 19 U/L 08/26/2014 Comp Metabolic Kvk580 ALT(SGPT) 29 U/L 08/26/2014 Comp Metabolic Sok089 BILI T 0.6 mg/dL 08/26/2014 Comp Metabolic Xhd508 ALBUMIN 4.5 g/dL 08/26/2014 Comp Metabolic Nay001 TPRO 6.9 g/dL 08/26/2014 Comp Metabolic Gwr504 GLOB 2.4 g/dL 08/26/2014 Comp Metabolic Yar863 A/G Ratio 1.9 Ratio 08/26/2014 Comp Metabolic Ird684 Osmo 270 mOsmo 08/26/2014 Review of Systems [...] Code : 8480-6 BMI: 31.0 Code : 86342-9 Heart Rate 1 : 79 bpm Height: 6'1" SpO2: 94% Waist Measure (cm): 97 cm Weight: 235 lbs 02/19/2018 Blood Pressure 1: 140/80 Code : 8480-6 BMI: 30.9 Code : 20834-6 Heart Rate 1 : 74 bpm Height: 6'1" SpO2: 95% Weight: 234 lbs 08/25/2016 Blood Pressure 1: 132/82 Code : 8480-6 BMI: 30.1 Code : 33708-9 Heart Rate 1 : 78 bpm Height: 6'1" SpO2: 95% Weight: 228 lbs 10/26/2015 Blood Pressure 1: 124/80 Code : 8480-6 BMI: 30.6 Code : 32595-5 Heart Rate 1 : 91 bpm Height: 6'1" SpO2: 98% Weight: 232 lbs 08/24/2015 Blood Pressure 1: 130/84 Code : 8480-6 BMI: 30.5 Code : 20904-7 Heart Rate 1 : 78 bpm Height: 6'1" SpO2: 98% Weight: 231 lbs 08/25/2014 Blood Pressure 1: 122/78 Code : 8480-6 BMI: 28.6 Code : 16171-0 Heart Rate 1 : 68 bpm Height: [...] data Encounters Encounter Performer Location Codes Date ([id number]) [id number] EST. PATIENT, LEVEL IV Diagnosis: Other idiopathic peripheral autonomic neuropathy[ICD10: G90.09] Diagnosis: Generalized anxiety disorder[ICD10: F41.1] Brenda Figueroa MD, [facility] CPT-4: 27161 02/19/2018 ([id number]) Miscellaneous no charge Diagnosis: Encounter for removal of sutures[ICD10: Z48.02] [facility] CPT-4: 35551 06/28/2017 ([id number]) 35331 EST. PATIENT, LEVEL IV Diagnosis: Other idiopathic peripheral autonomic neuropathy[ICD10: G90.09] Agueda [facility]ero[facility] MD, [facility] CPT-4: 65981 08/25/2016 [id number] EST. PATIENT, LEVEL IV Diagnosis: Acute laryngopharyngitis[ICD10: J06.0] Diagnosis: Other allergic rhinitis[ICD10: J30.89] [facility] CPT-4: 93551 10/26/2015 ([id number]) PREV VISIT EST AGE 40-64 Diagnosis: Encounter for general adult medical examination without abnormal findings[ICD10: Z00.00] [facility], [facility] CPT-4: 67117 08/24/2015 ([id number]) OFFICE VISIT, NEW - LEVEL 3 Diagnosis: Peripheral neuropathy[ICD9: 356.9] Diagnosis: Tinea[ICD9: 110.9] Agueda Figueroa MD, [facility] CPT-4: 74528 08/25/2014 Plan of Care Planned Activity Notes [...] labs in 1 month to monitor 03/06/2018 Patient Education: Patient Medication Summary Completed 03/06/2018 Patient Education: [facility] [employer] - 18-64 - Dynamic Portal ID Completed 03/06/2018 Patient Education: Patient Medication Summary Completed 02/22/2018 Visit Plan: Peripheral neuropathy- uncontrolled-patient has not tolerated medication-recommend he follow up with Dr Marquez for further evaluation -also discussed PT -patient will consider Anxiety-not well controlled -due to stress of brother with dementia-recommend Lan contact the clinical social worker at the [place] to see if they can help with his brother-patient is not interested in medication at this time -will consider if symptoms do no improve or if any worse. 02/19/2018 Appointment: Brenda Arce WPtel: [facility] [place] 2[place]5 [phone] (30 min) Complex 02/19/2018 Patient Education: Patient [...] daily. 08/25/2016 [phone] [facility] ([facility] min) Moderate 08/25/2016 Patient Education: Patient [...] pharmacy. 10/26/2015 Appointment: Janine Willoughby WPtel: [phone] [facility] (30 min) Complex 10/26/2015 Patient Education: Patient [...] renal functioning. 08/24/2015 Appointment: Agueda Figueroa WPtel: [facility] [place]note 2[place]7 [facility] (15 min) Moderate 08/24/2015 Patient Education: Patient [...] call if not improving. 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 I made recommendations for a referral to Dr. Mcclure at [address] for follow up and further recommendations for imaging and treatment of his medical complications after a remote work related injury that was treated by his previous physician. 08/25/2014 Appointment: [facility] [phone] [facility] [place] [facility] New Patient 08/25/2014 Patient Education: [...] of brother with dementia-recommend Lan contact the clinical social worker at the [place] to see if they can help with [...] call if not improving. 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 I made recommendations for a referral to Dr. Mcclure at [address] for follow up and further recommendations [...]
--- OUTSIDE RECORDS SUMMARY | 2018-03-23 10:21 | XMS REPORT | CCD ---
Author Author Agueda Figueroa Organization [facility] Address [address] [place] [address] Phone Care Team Providers Care Penology Teacher Name Role Phone PP Unavailable CCM Unavailable Summary Purpose Interface Exchange Insurance Providers Payer name Policy type / Coverage type Covered libertarian ID Effective Begin Date Effective End Date WPS Medicare Part B Medicare Part B [id number] Unknown [employer] [place] Medicare Part B [id number] Unknown Family history Sister Diagnosis Age At Onset Diabetes Unknown Father Diagnosis Age At Onset Stroke Unknown Brother Diagnosis Age At Onset Diabetes Unknown Brother Diagnosis Age At Onset No Family Disease Entered N/A Mother Diagnosis Age At Onset Diabetes Unknown Social History Social History Element Codes Description Effective Dates Marital status Unknown Sandra 08/24/[address]: 477334462 Never smoker 08/25/[address]: 905658626 Never drinks alcohol 08/25/2014 Allergies, Adverse Reactions, Alerts Substance Reaction Codes Entered Date Inactivated Date Status * OTHER REACTION - SEE ANSWER BOX Hydrocodone- dizzy, sick Unknown 08/24/2015 No Inactive Date Active * NO KNOWN DRUG ALLERGIES Unknown 08/24/2015 No Inactive Date Active Past Medical History Illness Codes Condition Status Onset Date Resolved Date Abnormal results of liver function studies ICD-9: [...] Problems Condition Codes Effective Dates Condition Status Abnormal results of liver function studies ICD-9: [...] Start Date Stop Date Status Fill Instructions Lyrica 100 mg capsule RxNorm: 976640 1 Capsule(s) PO TID 201602/18/2018 Inactive Lyrica 75 mg capsule RxNorm: 172602 1 Capsule(s) PO TID 201609/07/2016 Inactive gabapentin 300 mg capsule RxNorm: 882582 Capsule(s) TAKE ONE CAPSULE BY MOUTH THREE TIMES DAILY 01/28/2016 08/24/2016 Inactive Tessalon Perles 100 mg capsule RxNorm: 587666 1 Capsule(s) PO TID as needed 10/26/2015 10/30/2015 Inactive amoxicillin 500 mg capsule RxNorm: 897812 1 Capsule(s) PO TID 10/26/2015 11/01/2015 Inactive Fish Oil 1,000 mg capsule RxNorm: 1 Capsule(s) PO BID 201510/10/2015 Inactive gabapentin 300 mg capsule RxNorm: 636341 Capsule(s) TAKE ONE CAPSULE BY MOUTH THREE TIMES DAILY 08/13/2015 01/27/2016 Inactive Generic For:NEURONTIN 300MG N O T I C E PRESCRIPTION PREVIOUSLY AUTHORIZED BY DOCTOR:ZEKE LANCASTER gabapentin 300 mg capsule RxNorm: 435638 Capsule(s) TAKE ONE CAPSULE BY MOUTH THREE TIMES DAILY 03/10/2015 08/12/2015 Inactive Generic For:NEURONTIN 300MG N O T I C E PRESCRIPTION PREVIOUSLY AUTHORIZED BY DOCTOR:ZEKE LANCASTER gabapentin 300 mg capsule RxNorm: 759630 Capsule(s) TAKE ONE CAPSULE BY MOUTH THREE TIMES DAILY 03/10/2015 03/09/2015 Inactive Generic For:NEURONTIN 300MG N O T I C E PRESCRIPTION PREVIOUSLY AUTHORIZED BY DOCTOR:ZEKE LANCASTER [phone] gabapentin 300 mg capsule RxNorm: 362327 TAKE ONE CAPSULE BY MOUTH THREE TIMES DAILY 11/28/2014 03/09/2015 Inactive Generic For:NEURONTIN 300MG N O T I C E PRESCRIPTION PREVIOUSLY AUTHORIZED BY DOCTOR:ZEKE LANCASTER ketoconazole 2 % shampoo RxNorm: 385081 1 Application TOP daily 08/25/2014 08/31/2014 Inactive gabapentin 300 mg capsule RxNorm: 759562 1 Capsule(s) PO TID No Start Date 11/27/2014 Inactive Medication Administered No Medication Administered data Immunizations Vaccine Codes Date Status Influenza CVX: 141 11/06/2013 completed Assessments Condition Codes Effective Dates Abnormal results of liver function studies ICD-10: [...] Visit Reason For Visit Effective Dates Notes paresthesia 02/19/2018 paresthesia 08/25/2016 sinus congestion 10/26/2015 weight gain/obesity 08/24/2015 back pain 08/25/2014 Results Observation Observation Code Item Item Code Result Date Total Psa Ord10 PSA 0.34 ng/mL 02/20/2018 [...] 84.2 fl 02/20/2018 Cbc With Differential Ord2 [place]% 11.8 % 02/20/2018 Cbc With Differential Ord2 MCH 28.8 pg 02/20/2018 Cbc With Differential Ord2 Eos% 5.1 % 02/20/2018 Cbc With Differential Ord2 MCHC 34.2 pg 02/20/2018 Cbc With Differential Ord2 PLT 226 K/ul 02/20/2018 Cbc With Differential Ord2 Baso% 0.7 % 02/20/2018 Cbc With Differential Ord2 Neut ABS# 3.14 K/ul 02/20/2018 Cbc With Differential Ord2 RDW 14.0 % 02/20/2018 Cbc With Differential Ord2 Lymph ABS# 2.35 K/ul 02/20/2018 Cbc With Differential Ord2 [place] ABS# 0.8 K/ul 02/20/2018 Cbc With Differential Ord2 Eos ABS# 0.3 K/ul 02/20/2018 Cbc With Differential Ord2 Baso ABS# 0.1 K/ul 02/20/2018 Lipid Ord30 CHOL 194 mg/dL 02/20/2018 Lipid Ord30 HDL 38.0 mg/dl 02/20/2018 Lipid Ord30 TRIG 223 mg/dL 02/20/2018 Lipid Ord30 LDL 111 mg/dL 02/20/2018 Lipid Ord30 C/HDL 5.1 Ratio 02/20/2018 Tsh Ord6 TSH (3rd IS) 2.12 uIU/mL 02/20/2018 Comp Metabolic Lni195 NA 139 mEq/L 02/20/2018 Comp Metabolic Djh020 K 4.5 mEq/L 02/20/2018 Comp Metabolic Fjc481 CL 101 mEq/L 02/20/2018 Comp Metabolic Yds685 CO2 31.0 mEq/L 02/20/2018 Comp Metabolic Sil178 ANION GAP 12 02/20/2018 Comp Metabolic Osb849 GLUCOSE 103 mg/dL 02/20/2018 Comp Metabolic Asl221 Creat 0.9 mg/dL 02/20/2018 Comp Metabolic Evk117 eGFR 92 ml/min/1.73m2 02/20/2018 Comp Metabolic Djn037 BUN 12 mg/dL 02/20/2018 Comp Metabolic Efo598 B/C Ratio 13.5 Ratio 02/20/2018 Comp Metabolic Dqh262 CALCIUM 10.4 mg/dL 02/20/2018 Comp Metabolic Psf224 ALK PHOS 71 U/L 02/20/2018 Comp Metabolic Gbs707 AST(SGOT) 44 U/L 02/20/2018 Comp Metabolic Caw789 ALT(SGPT) 84 U/L 02/20/2018 Comp Metabolic Nqv072 BILI T 0.8 mg/dL 02/20/2018 Comp Metabolic Akb244 ALBUMIN 4.7 g/dL 02/20/2018 Comp Metabolic Rhz369 TPRO 7.3 g/dL 02/20/2018 Comp Metabolic Zpy399 GLOB 2.6 g/dL 02/20/2018 Comp Metabolic Pii010 A/G Ratio 1.8 Ratio 02/20/2018 Comp Metabolic Hxh070 Osmo 278 mOsmo 02/20/2018 Comp Metabolic Wht668 NA 140 mEq/L 08/26/2016 Comp Metabolic Lub265 K 4.8 mEq/L 08/26/2016 Comp Metabolic Lsc667 CL 105 mEq/L 08/26/2016 Comp Metabolic Rjo559 CO2 28.0 mEq/L 08/26/2016 Comp Metabolic Dam792 ANION GAP 12 08/26/2016 Comp Metabolic Weq385 GLUCOSE 96 mg/dL 08/26/2016 Comp Metabolic Xkg554 Creat 1.0 mg/dL 08/26/2016 Comp Metabolic Dwa758 eGFR 78 ml/min/1.73m2 08/26/2016 Comp Metabolic Moz787 BUN 16 mg/dL 08/26/2016 Comp Metabolic Mjd323 B/C Ratio 15.5 Ratio 08/26/2016 Comp Metabolic Zoj509 CALCIUM 9.6 mg/dL 08/26/2016 Comp Metabolic Knn877 ALK PHOS 74 U/L 08/26/2016 Comp Metabolic Kir249 AST(SGOT) 30 U/L 08/26/2016 Comp Metabolic Pyj040 ALT(SGPT) 48 U/L 08/26/2016 Comp Metabolic Vzs959 BILI T 0.7 mg/dL 08/26/2016 Comp Metabolic Icv011 ALBUMIN 4.3 g/dL 08/26/2016 Comp Metabolic Pha793 TPRO 7.1 g/dL 08/26/2016 Comp Metabolic Utf920 GLOB 2.8 g/dL 08/26/2016 Comp Metabolic Vcc753 A/G Ratio 1.6 Ratio 08/26/2016 Comp Metabolic Eyg306 Osmo 280 mOsmo 08/26/2016 Lipid Ord30 CHOL 181 mg/dL 08/26/2016 Lipid Ord30 HDL 42.0 mg/dl 08/26/2016 Lipid Ord30 TRIG 169 mg/dL 08/26/2016 Lipid Ord30 LDL 105 mg/dL 08/26/2016 Lipid Ord30 C/HDL 4.3 Ratio 08/26/2016 Tsh Ord6 hTSH II 1.55 uIU/mL 08/26/2016 B12 Oow167 B12 545.00 pg/ml 08/26/2016 Cbc With Differential [...] 28.9 pg 08/26/2016 Cbc With Differential Ord2 [place]% 8.7 % 08/26/2016 Cbc With Differential Ord2 MCHC 33.8 pg 08/26/2016 Cbc With Differential Ord2 Eos% 4.9 % 08/26/2016 Cbc With Differential Ord2 Baso% 0.5 % 08/26/2016 Cbc With Differential Ord2 PLT 210 K/ul 08/26/2016 Cbc With Differential Ord2 RDW 13.9 % 08/26/2016 Cbc With Differential Ord2 Neut ABS# 4.30 K/ul 08/26/2016 Cbc With Differential Ord2 Lymph ABS# 2.24 K/ul 08/26/2016 Cbc With Differential Ord2 [place] ABS# 0.7 K/ul 08/26/2016 Cbc With Differential Ord2 Eos ABS# 0.4 K/ul 08/26/2016 Cbc With Differential Ord2 Baso ABS# 0.0 K/ul 08/26/2016 Folate Ord36 Folate 21.80 ng/mL 08/26/2016 Lipid Ord30 CHOL 205 mg/dL 08/24/2015 Lipid Ord30 HDL 39.0 mg/dl 08/24/2015 Lipid Ord30 TRIG 192 mg/dL 08/24/2015 Lipid Ord30 LDL 128 mg/dL 08/24/2015 Lipid Ord30 C/HDL 5.3 Ratio 08/24/2015 Comp Metabolic Leo089 NA 136 mEq/L 08/24/2015 Comp Metabolic Kao145 K 4.4 mEq/L 08/24/2015 Comp Metabolic Wtu684 CL 102 mEq/L 08/24/2015 Comp Metabolic Pyd270 CO2 26.0 mEq/L 08/24/2015 Comp Metabolic Ozs455 ANION GAP 12 08/24/2015 Comp Metabolic Yzj016 GLUCOSE 85 mg/dL 08/24/2015 Comp Metabolic Eha388 Creat 0.9 mg/dL 08/24/2015 Comp Metabolic Zhz156 eGFR 87 ml/min/1.73m2 08/24/2015 Comp Metabolic Otb016 BUN 14 mg/dL 08/24/2015 Comp Metabolic Vty094 B/C Ratio 14.9 Ratio 08/24/2015 Comp Metabolic Syj437 CALCIUM 9.5 mg/dL 08/24/2015 Comp Metabolic Fil190 ALK PHOS 80 U/L 08/24/2015 Comp Metabolic Jsx186 AST(SGOT) 35 U/L 08/24/2015 Comp Metabolic Yjp552 ALT(SGPT) 58 U/L 08/24/2015 Comp Metabolic Ttf179 BILI T 0.8 mg/dL 08/24/2015 Comp Metabolic Gdq978 ALBUMIN 4.8 g/dL 08/24/2015 Comp Metabolic Zuq105 TPRO 7.3 g/dL 08/24/2015 Comp Metabolic Mbf936 GLOB 2.5 g/dL 08/24/2015 Comp Metabolic Itj277 A/G Ratio 1.9 Ratio 08/24/2015 Comp Metabolic Edz527 Osmo 272 mOsmo 08/24/2015 Tsh Ord6 hTSH II 2.26 uIU/mL 08/24/2015 Cbc With Differential Ord2 WBC 6.53 K/ul 08/24/2015 Cbc With Differential Ord2 RBC 5.43 M/ul 08/24/2015 Cbc With Differential Ord2 HGB 15.7 g/dl 08/24/2015 Cbc With Differential Ord2 Neut% 48.5 % 08/24/2015 Cbc With Differential Ord2 HCT 46.5 % 08/24/2015 Cbc With Differential Ord2 MCV 85.6 fl 08/24/2015 Cbc With Differential Ord2 Lymph% 34.8 % 08/24/2015 Cbc With Differential Ord2 [place]% 13.2 % 08/24/2015 Cbc With Differential Ord2 MCH 28.9 pg 08/24/2015 Cbc With Differential Ord2 Eos% 3.2 % 08/24/2015 Cbc With Differential Ord2 MCHC 33.8 pg 08/24/2015 Cbc With Differential Ord2 PLT 218 K/ul 08/24/2015 Cbc With Differential Ord2 Baso% 0.3 % 08/24/2015 Cbc With Differential Ord2 Neut ABS# 3.17 K/ul 08/24/2015 Cbc With Differential Ord2 RDW 14.3 % 08/24/2015 Cbc With Differential Ord2 Lymph ABS# 2.27 K/ul 08/24/2015 Cbc With Differential Ord2 [place] ABS# 0.9 K/ul 08/24/2015 Cbc With Differential [...] Ord2 RDW 13.4 % 08/26/2014 Comp Metabolic Srs907 NA 135 mEq/L 08/26/2014 Comp Metabolic Rzf185 K 4.7 mEq/L 08/26/2014 Comp Metabolic Myn071 CL 101 mEq/L 08/26/2014 Comp Metabolic Rhr010 CO2 29.0 mEq/L 08/26/2014 Comp Metabolic Kma282 ANION GAP 10 08/26/2014 Comp Metabolic Dzb612 GLUCOSE 99 mg/dL 08/26/2014 Comp Metabolic Rav790 Creat 0.9 mg/dL 08/26/2014 Comp Metabolic Viu630 eGFR 97 ml/min/1.73m2 08/26/2014 Comp Metabolic Rgw032 BUN 13 mg/dL 08/26/2014 Comp Metabolic Mtf726 B/C Ratio 15.1 Ratio 08/26/2014 Comp Metabolic Jbm809 CALCIUM 9.7 mg/dL 08/26/2014 Comp Metabolic Orq507 ALK PHOS 89 U/L 08/26/2014 Comp Metabolic Ibv162 AST(SGOT) 19 U/L 08/26/2014 Comp Metabolic Jvw985 ALT(SGPT) 29 U/L 08/26/2014 Comp Metabolic Wvv015 BILI T 0.6 mg/dL 08/26/2014 Comp Metabolic Acb408 ALBUMIN 4.5 g/dL 08/26/2014 Comp Metabolic Uai256 TPRO 6.9 g/dL 08/26/2014 Comp Metabolic Cwu646 GLOB 2.4 g/dL 08/26/2014 Comp Metabolic Dij830 A/G Ratio 1.9 Ratio 08/26/2014 Comp Metabolic Rak270 Osmo 270 mOsmo 08/26/2014 Review of Systems [...] back and shoulders - reddened lesion Procedures No Procedures data Vital Signs Date Vital 02/19/2018 Blood Pressure 1: 140/80 Code : 8480-6 BMI: 30.9 Code : 94973-3 Heart Rate 1 : 74 bpm Height: 6'1" SpO2: 95% Weight: 234 lbs 08/25/2016 Blood Pressure 1: 132/82 Code : 8480-6 BMI: 30.1 Code : 91701-4 Heart Rate 1 : 78 bpm Height: 6'1" SpO2: 95% Weight: 228 lbs 10/26/2015 Blood Pressure 1: 124/80 Code : 8480-6 BMI: 30.6 Code : 17538-2 Heart Rate 1 : 91 bpm Height: 6'1" SpO2: 98% Weight: 232 lbs 08/24/2015 Blood Pressure 1: 130/84 Code : 8480-6 BMI: 30.5 Code : 53720-2 Heart Rate 1 : 78 bpm Height: 6'1" SpO2: 98% Weight: 231 lbs 08/25/2014 Blood Pressure 1: 122/78 Code : 8480-6 BMI: 28.6 Code : 27758-7 Heart Rate 1 : 68 bpm Height: 6'1" Weight: 217 lbs Functional Status No Functional Status data History of Present Illness Symptom Name Status Result Effective Date Notes Location on both feet 02/19/2018 None Quality [...] data Encounters Encounter Performer Location Codes Date ([id number]) [id number] EST. PATIENT, LEVEL IV Diagnosis: Other idiopathic peripheral autonomic neuropathy[ICD10: G90.09] Diagnosis: Generalized anxiety disorder[ICD10: F41.1] [facility] CPT-4: 14196 02/19/2018 ([id number]) Miscellaneous no charge Diagnosis: Encounter for removal of sutures[ICD10: Z48.02] [facility] CPT-4: 35801 06/28/2017 ([id number]) 80775 EST. PATIENT, LEVEL IV Diagnosis: Other idiopathic peripheral autonomic neuropathy[ICD10: G90.09] [facility] CPT-4: 66095 08/25/2016 10610 EST. PATIENT, LEVEL IV Diagnosis: Acute laryngopharyngitis[ICD10: J06.0] Diagnosis: Other allergic rhinitis[ICD10: J30.89] [facility] CPT-4: 96968 10/26/2015 ([id number]) PREV VISIT EST AGE 40-64 Diagnosis: Encounter for general adult medical examination without abnormal findings[ICD10: Z00.00] [facility] CPT-4: 78739 08/24/2015 ([id number]) OFFICE VISIT, NEW - LEVEL 3 Diagnosis: Peripheral neuropathy[ICD9: 356.9] Diagnosis: Tinea[ICD9: 110.9] [facility] CPT-4: 77252 08/25/2014 Plan of Care Planned Activity Notes Codes Status Date Patient Education: Patient Medication Summary Completed 02/22/2018 Care Plan: Hepatitis Panel (Abc) add to blood from 02/20 Pending 02/22/2018 Visit Plan: Peripheral neuropathy- uncontrolled-patient has not tolerated medication-recommend he follow up with Dr Marquez for further evaluation -also discussed PT -patient will consider Anxiety-not well controlled -due to stress of brother with dementia-recommend Lan contact the director of social work at the [facility] to see if they can help with his brother-patient is not interested in medication at this time -will consider if symptoms do no improve or if any worse. 02/19/2018 Appointment: Brenda Arce WPtel: [address] [place], [place] [phone] (30 min) [facility] 02/19/2018 Patient Education: Patient Medication Summary Completed [...] times daily. 08/25/2016 Appointment: Agueda Figueroa WPtel: [facility] (15 min) Moderate 08/25/2016 Patient Education: Patient [...] 10/26/2015 Appointment: Janine Willoughby WPtel: [phone] [facility] (30 min) Complex 10/26/2015 Patient Education: Patient [...] renal functioning. 08/24/2015 Appointment: Agueda Figueroa WPtel: [phone] [facility] (15 min) Moderate 08/24/2015 Patient Education: Patient [...] call if not improving. Referral back to [address] - [place] - history of vertebral fracture - his previous physician (clinical rehabilitation specialist) is no longer in practice at [address], he has spondylolisthesis and foraminal stenosis and persistent peripheral neuropathy symptoms. I made recommendations for a referral to Dr. Mcclure at [address] for follow up and further recommendations for imaging and treatment of his medical complications after a remote work related injury that was treated by his previous physician. 08/25/2014 Appointment: [phone] [place] New Patient 08/25/2014 Patient Education: [...] brother with dementia-recommend Lan contact the director of social work at the [facility] to see if they can help with [...] call if not improving. Referral back to [address] - [place] - history of vertebral fracture - his previous physician (clinical rehabilitation specialist) is no longer in practice at [address] , he has spondylolisthesis and foraminal stenosis and persistent peripheral neuropathy symptoms. I made recommendations for a referral to Dr. Mcclure at [address] for follow up and further recommendations [...]
--- OUTSIDE RECORDS SUMMARY | 2018-03-23 10:22 | XMS REPORT | CCD ---
Author Author [facility] Organization [facility] Address [address] [place] [address] Phone Care Team Providers Care Lithopone Charger Name Role Phone PP Unavailable CCM Unavailable Summary Purpose Interface Exchange Insurance Providers Payer name Policy type / Coverage type Covered republican ID Effective Begin Date Effective End Date WPS Medicare Part B Medicare Part B [id number] Unknown [employer] Medicare Part B [id number] Unknown Family history Sister Diagnosis Age At Onset Diabetes Unknown Father Diagnosis Age At Onset Stroke Unknown Brother Diagnosis Age At Onset Diabetes Unknown Brother Diagnosis Age At Onset No Family Disease Entered N/A Mother Diagnosis Age At Onset Diabetes Unknown Social History Social History Element Codes Description Effective Dates Marital status Unknown Sandra 08/24/[address]: 086172957 Never smoker 08/25/[address]: 635769907 Never drinks alcohol 08/25/2014 Allergies, Adverse Reactions, [...] Fill Instructions Lyrica 100 mg capsule RxNorm: 232634 1 Capsule(s) PO TID 201602/18/2018 Inactive Lyrica 75 mg capsule RxNorm: 858294 1 Capsule(s) PO TID 201609/07/2016 Inactive gabapentin 300 mg capsule RxNorm: 717492 Capsule(s) TAKE ONE CAPSULE BY MOUTH THREE TIMES DAILY 01/28/2016 08/24/2016 Inactive Tessalon Perles 100 mg capsule RxNorm: 986812 1 Capsule(s) PO TID as needed 10/26/2015 10/30/2015 Inactive amoxicillin 500 mg capsule RxNorm: 314466 1 Capsule(s) PO TID 10/26/2015 11/01/2015 Inactive Fish Oil 1,000 mg capsule RxNorm: 1 Capsule(s) PO BID 201510/10/2015 Inactive gabapentin 300 mg capsule RxNorm: 944630 Capsule(s) TAKE ONE CAPSULE BY MOUTH THREE TIMES DAILY 08/13/2015 01/27/2016 Inactive Generic For:NEURONTIN 300MG N O T I C E PRESCRIPTION PREVIOUSLY AUTHORIZED BY DOCTOR:ZEKE LANCASTER gabapentin 300 mg capsule RxNorm: 176311 Capsule(s) TAKE ONE CAPSULE BY MOUTH THREE TIMES DAILY 03/10/2015 08/12/2015 Inactive Generic For:NEURONTIN 300MG N O T I C E PRESCRIPTION PREVIOUSLY AUTHORIZED BY DOCTOR:ZEKE LANCASTER gabapentin 300 mg capsule RxNorm: 201081 Capsule(s) TAKE ONE CAPSULE BY MOUTH THREE TIMES DAILY 03/10/2015 03/09/2015 Inactive Generic For:NEURONTIN 300MG N O T I C E PRESCRIPTION PREVIOUSLY AUTHORIZED BY DOCTOR:ZEKE LANCASTER [phone] gabapentin 300 mg capsule RxNorm: 339410 TAKE ONE CAPSULE BY MOUTH THREE TIMES DAILY 11/28/2014 03/09/2015 Inactive Generic For:NEURONTIN 300MG N O T I C E PRESCRIPTION PREVIOUSLY AUTHORIZED BY DOCTOR:ZEKE LANCASTER ketoconazole 2 % shampoo RxNorm: 532530 1 Application TOP daily 08/25/2014 08/31/2014 Inactive gabapentin 300 mg capsule RxNorm: 769361 1 Capsule(s) PO TID No Start Date [...] 84.2 fl 02/20/2018 Cbc With Differential Ord2 Sawyer% 11.8 % 02/20/2018 Cbc With Differential Ord2 [...] 2.35 K/ul 02/20/2018 Cbc With Differential Ord2 Sawyer ABS# 0.8 K/ul 02/20/2018 Cbc With Differential Ord2 Eos ABS# 0.3 K/ul 02/20/2018 Cbc With Differential Ord2 Baso ABS# 0.1 K/ul 02/20/2018 Lipid Ord30 CHOL 194 mg/dL 02/20/2018 Lipid Ord30 HDL 38.0 mg/dl 02/20/2018 Lipid Ord30 TRIG 223 mg/dL 02/20/2018 Lipid Ord30 LDL 111 mg/dL 02/20/2018 Lipid Ord30 C/HDL 5.1 Ratio 02/20/2018 Tsh Ord6 TSH (3rd IS) 2.12 uIU/mL 02/20/2018 Comp Metabolic Hkz612 NA 139 mEq/L 02/20/2018 Comp Metabolic Ixh810 K 4.5 mEq/L 02/20/2018 Comp Metabolic Ixw938 CL 101 mEq/L 02/20/2018 Comp Metabolic Kdc617 CO2 31.0 mEq/L 02/20/2018 Comp Metabolic Ghn155 ANION GAP 12 02/20/2018 Comp Metabolic Inv606 GLUCOSE 103 mg/dL 02/20/2018 Comp Metabolic Mvc831 Creat 0.9 mg/dL 02/20/2018 Comp Metabolic Llf128 eGFR 92 ml/min/1.73m2 02/20/2018 Comp Metabolic Xsi022 BUN 12 mg/dL 02/20/2018 Comp Metabolic Oed775 B/C Ratio 13.5 Ratio 02/20/2018 Comp Metabolic Van659 CALCIUM 10.4 mg/dL 02/20/2018 Comp Metabolic Zkz830 ALK PHOS 71 U/L 02/20/2018 Comp Metabolic Env285 AST(SGOT) 44 U/L 02/20/2018 Comp Metabolic Kgk159 ALT(SGPT) 84 U/L 02/20/2018 Comp Metabolic Sfo760 BILI T 0.8 mg/dL 02/20/2018 Comp Metabolic Hwt248 ALBUMIN 4.7 g/dL 02/20/2018 Comp Metabolic Kun337 TPRO 7.3 g/dL 02/20/2018 Comp Metabolic Sqx179 GLOB 2.6 g/dL 02/20/2018 Comp Metabolic Tyq009 A/G Ratio 1.8 Ratio 02/20/2018 Comp Metabolic Jew008 Osmo 278 mOsmo 02/20/2018 Comp Metabolic Xgm225 NA 140 mEq/L 08/26/2016 Comp Metabolic Fbz823 K 4.8 mEq/L 08/26/2016 Comp Metabolic Mlq673 CL 105 mEq/L 08/26/2016 Comp Metabolic Tbr099 CO2 28.0 mEq/L 08/26/2016 Comp Metabolic Nig006 ANION GAP 12 08/26/2016 Comp Metabolic Bqj011 GLUCOSE 96 mg/dL 08/26/2016 Comp Metabolic Ixu893 Creat 1.0 mg/dL 08/26/2016 Comp Metabolic Nad861 eGFR 78 ml/min/1.73m2 08/26/2016 Comp Metabolic Sdy267 BUN 16 mg/dL 08/26/2016 Comp Metabolic Rvh052 B/C Ratio 15.5 Ratio 08/26/2016 Comp Metabolic Yum156 CALCIUM 9.6 mg/dL 08/26/2016 Comp Metabolic Qlq412 ALK PHOS 74 U/L 08/26/2016 Comp Metabolic Rnz545 AST(SGOT) 30 U/L 08/26/2016 Comp Metabolic Med891 ALT(SGPT) 48 U/L 08/26/2016 Comp Metabolic Frg571 BILI T 0.7 mg/dL 08/26/2016 Comp Metabolic Eow022 ALBUMIN 4.3 g/dL 08/26/2016 Comp Metabolic Wly803 TPRO 7.1 g/dL 08/26/2016 Comp Metabolic Xrd586 GLOB 2.8 g/dL 08/26/2016 Comp Metabolic Ozv223 A/G Ratio 1.6 Ratio 08/26/2016 Comp Metabolic Ogs342 Osmo 280 mOsmo 08/26/2016 Lipid Ord30 CHOL 181 mg/dL 08/26/2016 Lipid Ord30 HDL 42.0 mg/dl 08/26/2016 Lipid Ord30 TRIG 169 mg/dL 08/26/2016 Lipid Ord30 LDL 105 mg/dL 08/26/2016 Lipid Ord30 C/HDL 4.3 Ratio 08/26/2016 Tsh Ord6 hTSH II 1.55 uIU/mL 08/26/2016 B12 Qkn379 B12 545.00 pg/ml 08/26/2016 Cbc With Differential [...] 28.9 pg 08/26/2016 Cbc With Differential Ord2 Sawyer% 8.7 % 08/26/2016 Cbc With Differential Ord2 [...] 2.24 K/ul 08/26/2016 Cbc With Differential Ord2 Sawyer ABS# 0.7 K/ul 08/26/2016 Cbc With Differential Ord2 Eos ABS# 0.4 K/ul 08/26/2016 Cbc With Differential Ord2 Baso ABS# 0.0 K/ul 08/26/2016 Folate Ord36 Folate 21.80 ng/mL 08/26/2016 Lipid Ord30 CHOL 205 mg/dL 08/24/2015 Lipid Ord30 HDL 39.0 mg/dl 08/24/2015 Lipid Ord30 TRIG 192 mg/dL 08/24/2015 Lipid Ord30 LDL 128 mg/dL 08/24/2015 Lipid Ord30 C/HDL 5.3 Ratio 08/24/2015 Comp Metabolic Uod867 NA 136 mEq/L 08/24/2015 Comp Metabolic Rjd649 K 4.4 mEq/L 08/24/2015 Comp Metabolic Thh099 CL 102 mEq/L 08/24/2015 Comp Metabolic Uxy754 CO2 26.0 mEq/L 08/24/2015 Comp Metabolic Njv028 ANION GAP 12 08/24/2015 Comp Metabolic Tel988 GLUCOSE 85 mg/dL 08/24/2015 Comp Metabolic Rjj224 Creat 0.9 mg/dL 08/24/2015 Comp Metabolic Oag805 eGFR 87 ml/min/1.73m2 08/24/2015 Comp Metabolic Isj138 BUN 14 mg/dL 08/24/2015 Comp Metabolic Oiu254 B/C Ratio 14.9 Ratio 08/24/2015 Comp Metabolic Kce733 CALCIUM 9.5 mg/dL 08/24/2015 Comp Metabolic Nsq564 ALK PHOS 80 U/L 08/24/2015 Comp Metabolic Jsc541 AST(SGOT) 35 U/L 08/24/2015 Comp Metabolic Gnj420 ALT(SGPT) 58 U/L 08/24/2015 Comp Metabolic Zjo271 BILI T 0.8 mg/dL 08/24/2015 Comp Metabolic Prj665 ALBUMIN 4.8 g/dL 08/24/2015 Comp Metabolic Cwp657 TPRO 7.3 g/dL 08/24/2015 Comp Metabolic Tqo328 GLOB 2.5 g/dL 08/24/2015 Comp Metabolic Nho201 A/G Ratio 1.9 Ratio 08/24/2015 Comp Metabolic Pyg446 Osmo 272 mOsmo 08/24/2015 Tsh Ord6 hTSH [...] 34.8 % 08/24/2015 Cbc With Differential Ord2 Sawyer% 13.2 % 08/24/2015 Cbc With Differential Ord2 [...] 2.27 K/ul 08/24/2015 Cbc With Differential Ord2 Sawyer ABS# 0.9 K/ul 08/24/2015 Cbc With Differential [...] Ord2 RDW 13.4 % 08/26/2014 Comp Metabolic Cty958 NA 135 mEq/L 08/26/2014 Comp Metabolic Eup404 K 4.7 mEq/L 08/26/2014 Comp Metabolic Lgl333 CL 101 mEq/L 08/26/2014 Comp Metabolic Zaa256 CO2 29.0 mEq/L 08/26/2014 Comp Metabolic Jja472 ANION GAP 10 08/26/2014 Comp Metabolic Gos568 GLUCOSE 99 mg/dL 08/26/2014 Comp Metabolic Tau248 Creat 0.9 mg/dL 08/26/2014 Comp Metabolic Mgi002 eGFR 97 ml/min/1.73m2 08/26/2014 Comp Metabolic Klu722 BUN 13 mg/dL 08/26/2014 Comp Metabolic Kjw777 B/C Ratio 15.1 Ratio 08/26/2014 Comp Metabolic Snh510 CALCIUM 9.7 mg/dL 08/26/2014 Comp Metabolic Kpj319 ALK PHOS 89 U/L 08/26/2014 Comp Metabolic Dmv285 AST(SGOT) 19 U/L 08/26/2014 Comp Metabolic Fak570 ALT(SGPT) 29 U/L 08/26/2014 Comp Metabolic Lcr634 BILI T 0.6 mg/dL 08/26/2014 Comp Metabolic Kmn811 ALBUMIN 4.5 g/dL 08/26/2014 Comp Metabolic Cdg166 TPRO 6.9 g/dL 08/26/2014 Comp Metabolic Lpr552 GLOB 2.4 g/dL 08/26/2014 Comp Metabolic Qbt991 A/G Ratio 1.9 Ratio 08/26/2014 Comp Metabolic Oew759 Osmo 270 mOsmo 08/26/2014 Review of Systems [...] Code : 8480-6 BMI: 30.9 Code : 30191-2 Heart Rate 1 : 74 bpm Height: 6'1" SpO2: 95% Weight: 234 lbs 08/25/2016 Blood Pressure 1: 132/82 Code : 8480-6 BMI: 30.1 Code : 57817-6 Heart Rate 1 : 78 bpm Height: 6'1" SpO2: 95% Weight: 228 lbs 10/26/2015 Blood Pressure 1: 124/80 Code : 8480-6 BMI: 30.6 Code : 95546-3 Heart Rate 1 : 91 bpm Height: 6'1" SpO2: 98% Weight: 232 lbs 08/24/2015 Blood Pressure 1: 130/84 Code : 8480-6 BMI: 30.5 Code : 70112-6 Heart Rate 1 : 78 bpm Height: 6'1" SpO2: 98% Weight: 231 lbs 08/25/2014 Blood Pressure 1: 122/78 Code : 8480-6 BMI: 28.6 Code : 41631-9 Heart Rate 1 : 68 bpm Height: [...] data Encounters Encounter Performer Location Codes Date ([id number]) [id number] EST. PATIENT, LEVEL IV Diagnosis: Other idiopathic peripheral autonomic neuropathy[ICD10: G90.09] Diagnosis: Generalized anxiety disorder[ICD10: F41.1] [facility] CPT-4: 10813 02/19/2018 ([id number]) Miscellaneous no charge Diagnosis: Encounter for removal of sutures[ICD10: Z48.02] [facility] CPT-4: 78114 06/28/2017 ([id number]) 24902 EST. PATIENT, LEVEL IV Diagnosis: Other idiopathic peripheral autonomic neuropathy[ICD10: G90.09] [facility] CPT-4: 57403 08/25/2016 [id number] EST. PATIENT, LEVEL IV Diagnosis: Acute laryngopharyngitis[ICD10: J06.0] Diagnosis: Other allergic rhinitis[ICD10: J30.89] [facility] CPT-4: 86506 10/26/2015 ([id number]) PREV VISIT EST AGE 40-64 Diagnosis: Encounter for general adult medical examination without abnormal findings[ICD10: Z00.00] [facility] CPT-4: 15417 08/24/2015 ([id number]) OFFICE VISIT, NEW - LEVEL 3 Diagnosis: Peripheral neuropathy[ICD9: 356.9] Diagnosis: Tinea[ICD9: 110.9] [facility] CPT-4: 81350 08/25/2014 Plan of Care Planned Activity Notes [...] of brother with dementia-recommend Lan contact the sr. social media & mobile manager at the [place] to see if they can help with his brother-patient is not interested in medication at this time -will consider if symptoms do no improve or if any worse. 02/19/2018 Appointment: Brenda Arce WPtel: [address] [place], [place] [phone] (30 min) [facility] 02/19/2018 Patient Education: Patient Medication Summary [...] times daily. 08/25/2016 Appointment: Agueda Figueroa WPtel: [phone] (15 min) Moderate 08/25/2016 Patient Education: Patient [...] pharmacy. 10/26/2015 Appointment: Janine Willoughby WPtel: [phone] [phone] (30 min) Complex 10/26/2015 Patient Education: [...] renal functioning. 08/24/2015 Appointment: Agueda Figueroa WPtel: [phone] [phone] (15 min) Moderate 08/24/2015 Patient Education: Patient [...] call if not improving. Referral back to [address] - RE - history of vertebral fracture - his previous physician (care specialist) is no longer in practice at [address], he has spondylolisthesis and foraminal stenosis and persistent peripheral neuropathy symptoms. I made recommendations for a referral to Dr. Mcclure at [address] for follow up and further recommendations for imaging and treatment of his medical complications after a remote work related injury that was treated by his previous physician. 08/25/2014 App[facility]ment[phone] [place] [facility] New Patient 08/25/2014 Patient [...] of brother with dementia-recommend Lan contact the sr. social media & mobile manager at the [place] to see if they can help with [...] call if not improving. Referral back to [address] - RE - history of vertebral fracture - his previous physician (care specialist) is no longer in practice at [address] , he has spondylolisthesis and foraminal stenosis and persistent peripheral neuropathy symptoms. I made recommendations for a referral to Dr. Mcclure at [address] for follow up and further recommendations [...]
--- OUTSIDE RECORDS SUMMARY | 2018-03-23 10:23 | XMS REPORT | Continuity of Care Document ---
Author Author [facility] Address Unknown Phone Unavailable Allergies Active Description Code Type Severity Reaction Onset Reported/Identified Relationship to Patient Clinical Status Yes No Known Drug Allergies [id number] Drug Allergy Unknown N/A 03/16/2018 Medications There is no data. Problems Date [...] SAMREEN SABILLON DO Ot M54.9 DORSALGIA, UNSPECIFIED 06/19/2017 BELGICA ACE MD Ot 724.02 SPINAL STENOSIS, LUMBAR REG, W/OUT NEURO 06/19/2017 BELGICA ACE MD Ot V45.4 ARTHRODESIS STATUS 06/19/2017 SAMREEN SABILLON DO Ot M54.9 DORSALGIA, UNSPECIFIED 06/19/2017 BRYANT ARVIZU MD Ot S91.312A LACERATION WITHOUT FOREIGN BODY, LEFT FO 06/19/2017 BRYANT ARVIZU MD Ot W29.8XXA CNTCT WITH OTHER POWERED HAND TOOLS AND 06/19/2017 BRYANT ARVIZU MD Ot Z80.0 FAMILY HISTORY OF MALIGNANT NEOPLASM OF 06/21/2017 BRYANT ARVIZU MD Ot S91.312A LACERATION WITHOUT FOREIGN BODY, LEFT FO 06/21/2017 BRYANT ARVIZU MD Ot W29.8XXA CNTCT WITH OTHER POWERED HAND TOOLS AND 06/21/2017 BRYANT ARVIZU MD Ot Z80.0 FAMILY HISTORY OF MALIGNANT NEOPLASM OF 03/16/2018 DAVID IBARRA MD Ot Z01.818 ENCOUNTER FOR OTHER PREPROCEDURAL EXAMIN Procedures There is no data. Results There is no data. Encounters ACCT No. Visit Date/Time Discharge Status Pt. Type Provider Facility Loc./Unit Complaint [id number] 11/20/2013 18:57:00 11/20/2013 23:59:59 [place] [id number] 11/14/2016 18:20:00 11/14/2016 23:59:59 CLS Outpatient TERELL FLOYD DO [facility] [id number] 03/16/2018 06:19:00 03/16/2018 11:48:00 DIS Outpatient DAVID IBARRA MD [facility] PREOP COLONOSCOPY [id number] 06/19/2017 14:03:00 06/19/2017 15:35:00 DIS Emergency BRYANT ARVIZU MD [facility] ER LEFT LEG LAC [id number] 10/21/2015 13:20:00 10/21/2015 23:59:59 CLS Outpatient SAMREEN SABILLON DO [facility] RAD BACK PAIN [id number] 12/09/2014 09:09:00 12/09/2014 14:45:00 DIS Outpatient SAMREEN SABILLON DO [facility] RAD PSEUDOARTHROSIS [id number] 09/03/2013 07:37:00 09/03/2013 10:55:00 DIS Outpatient [id number] 08/30/2013 07:55:00 08/30/2013 23:59:59 CLS Outpatient DAVID IBARRA MD [facility] PREOP [id number] 02/14/2013 09:20:00 02/14/2013 23:59:59 CLS Outpatient BELGICA ACE MD [facility] RAD LUMBAR STENOSIS [id number] 03/23/2018 09:00:00 PEN Preadmit DAVID IBARRA MD [facility] ENDO SCREENING/FAMILY HX COLON CA [id number] 08/16/2011 15:19:00 Document Registration [id number] 09/15/2016 07:49:47 09/15/2016 23:59:59 CLS Outpatient
--- OUTSIDE RECORDS SUMMARY | 2018-03-23 10:23 | XMS REPORT | CCD ---
Author Author Agueda iFgueroa Organization [facility] Address [address] [place] [address] Phone Care Team Providers Care Soil Specialist Name Role Phone PP Unavailable CCM Unavailable Summary Purpose Interface Exchange Insurance Providers Payer name Policy type / Coverage type Covered green party ID Effective Begin Date Effective End Date WPS Medicare Part B Medicare Part B [id number] Unknown [employer] Medicare Part B [id number] Unknown Family history Sister Diagnosis Age At Onset Diabetes Unknown Father Diagnosis Age At Onset Stroke Unknown Brother Diagnosis Age At Onset Diabetes Unknown Brother Diagnosis Age At Onset No Family Disease Entered N/A Mother Diagnosis Age At Onset Diabetes Unknown Social History Social History Element Codes Description Effective Dates Marital status Unknown Sandra 08/24/[address]: 393912884 Never smoker 08/25/[address]: 124315727 Never drinks alcohol 08/25/2014 Allergies, Adverse Reactions, Alerts Substance Reaction Codes Entered Date Inactivated Date Status * OTHER REACTION - SEE ANSWER BOX Hydrocodone- dizzy, sick Unknown 08/24/2015 No Inactive Date Active * NO KNOWN DRUG ALLERGIES Unknown 08/24/2015 No Inactive Date Active Past Medical History Illness Codes Condition Status Onset Date Resolved Date Encounter for general adult medical examination without [...] Status Encounter for general adult medical examination without [...] Fill Instructions Lyrica 100 mg capsule RxNorm: 425662 1 Capsule(s) PO TID 201602/18/2018 Inactive Lyrica 75 mg capsule RxNorm: 397567 1 Capsule(s) PO TID 201609/07/2016 Inactive gabapentin 300 mg capsule RxNorm: 876867 Capsule(s) TAKE ONE CAPSULE BY MOUTH THREE TIMES DAILY 01/28/2016 08/24/2016 Inactive Tessalon Perles 100 mg capsule RxNorm: 115644 1 Capsule(s) PO TID as needed 10/26/2015 10/30/2015 Inactive amoxicillin 500 mg capsule RxNorm: 300516 1 Capsule(s) PO TID 10/26/2015 11/01/2015 Inactive Fish Oil 1,000 mg capsule RxNorm: 1 Capsule(s) PO BID 201510/10/2015 Inactive gabapentin 300 mg capsule RxNorm: 377844 Capsule(s) TAKE ONE CAPSULE BY MOUTH THREE TIMES DAILY 08/13/2015 01/27/2016 Inactive Generic For:NEURONTIN 300MG N O T I C E PRESCRIPTION PREVIOUSLY AUTHORIZED BY DOCTOR:ZEKE LANCASTER gabapentin 300 mg capsule RxNorm: 405435 Capsule(s) TAKE ONE CAPSULE BY MOUTH THREE TIMES DAILY 03/10/2015 08/12/2015 Inactive Generic For:NEURONTIN 300MG N O T I C E PRESCRIPTION PREVIOUSLY AUTHORIZED BY DOCTOR:ZEKE LANCASTER [phone] gabapentin 300 mg capsule RxNorm: 932537 Capsule(s) TAKE ONE CAPSULE BY MOUTH THREE TIMES DAILY 03/10/2015 03/09/2015 Inactive Generic For:NEURONTIN 300MG N O T I C E PRESCRIPTION PREVIOUSLY AUTHORIZED BY DOCTOR:ZEKE LANCASTER [phone] gabapentin 300 mg capsule RxNorm: 937916 TAKE ONE CAPSULE BY MOUTH THREE TIMES DAILY 11/28/2014 03/09/2015 Inactive Generic For:NEURONTIN 300MG N O T I C E PRESCRIPTION PREVIOUSLY AUTHORIZED BY DOCTOR:ZEKE LANCASTER ketoconazole 2 % shampoo RxNorm: 260616 1 Application TOP daily 08/25/2014 08/31/2014 Inactive gabapentin 300 mg capsule RxNorm: 997105 1 Capsule(s) PO TID No Start Date 11/27/2014 Inactive Medication Administered No Medication Administered data Immunizations Vaccine Codes Date Status Influenza CVX: 141 11/06/2013 completed Assessments Condition Codes Effective Dates Other idiopathic peripheral autonomic neuropathy ICD-10: G90.09 [...] Observation Code Item Item Code Result Date Comp Metabolic Ayz198 NA 140 mEq/L 08/26/2016 Comp Metabolic Epi865 K 4.8 mEq/L 08/26/2016 Comp Metabolic Ffd196 CL 105 mEq/L 08/26/2016 Comp Metabolic Rza275 CO2 28.0 mEq/L 08/26/2016 Comp Metabolic Qtz258 ANION GAP 12 08/26/2016 Comp Metabolic Bfl431 GLUCOSE 96 mg/dL 08/26/2016 Comp Metabolic Qtu273 Creat 1.0 mg/dL 08/26/2016 Comp Metabolic Aoe515 eGFR 78 ml/min/1.73m2 08/26/2016 Comp Metabolic Yul274 BUN 16 mg/dL 08/26/2016 Comp Metabolic Iht046 B/C Ratio 15.5 Ratio 08/26/2016 Comp Metabolic Tnd330 CALCIUM 9.6 mg/dL 08/26/2016 Comp Metabolic Nmt515 ALK PHOS 74 U/L 08/26/2016 Comp Metabolic Qzf983 AST(SGOT) 30 U/L 08/26/2016 Comp Metabolic Wxy611 ALT(SGPT) 48 U/L 08/26/2016 Comp Metabolic Svu543 BILI T 0.7 mg/dL 08/26/2016 Comp Metabolic Sbk257 ALBUMIN 4.3 g/dL 08/26/2016 Comp Metabolic Bbz829 TPRO 7.1 g/dL 08/26/2016 Comp Metabolic Fxo256 GLOB 2.8 g/dL 08/26/2016 Comp Metabolic Shh794 A/G Ratio 1.6 Ratio 08/26/2016 Comp Metabolic Jfy582 Osmo 280 mOsmo 08/26/2016 Lipid Ord30 CHOL 181 mg/dL 08/26/2016 Lipid Ord30 HDL 42.0 mg/dl 08/26/2016 Lipid Ord30 TRIG 169 mg/dL 08/26/2016 Lipid Ord30 LDL 105 mg/dL 08/26/2016 Lipid Ord30 C/HDL 4.3 Ratio 08/26/2016 Tsh Ord6 hTSH II 1.55 uIU/mL 08/26/2016 B12 Zuj978 B12 545.00 pg/ml 08/26/2016 Cbc With Differential [...] 28.9 pg 08/26/2016 Cbc With Differential Ord2 [place]% 8.7 % 08/26/2016 Cbc With Differential Ord2 [...] 2.24 K/ul 08/26/2016 Cbc With Differential Ord2 [place] ABS# 0.7 K/ul 08/26/2016 Cbc With Differential Ord2 Eos ABS# 0.4 K/ul 08/26/2016 Cbc With Differential Ord2 Baso ABS# 0.0 K/ul 08/26/2016 Folate Ord36 Folate 21.80 ng/mL 08/26/2016 Lipid Ord30 CHOL 205 mg/dL 08/24/2015 Lipid Ord30 HDL 39.0 mg/dl 08/24/2015 Lipid Ord30 TRIG 192 mg/dL 08/24/2015 Lipid Ord30 LDL 128 mg/dL 08/24/2015 Lipid Ord30 C/HDL 5.3 Ratio 08/24/2015 Comp Metabolic Jvk189 NA 136 mEq/L 08/24/2015 Comp Metabolic Kdn750 K 4.4 mEq/L 08/24/2015 Comp Metabolic Zfl129 CL 102 mEq/L 08/24/2015 Comp Metabolic Cxk507 CO2 26.0 mEq/L 08/24/2015 Comp Metabolic Cmr271 ANION GAP 12 08/24/2015 Comp Metabolic Lrp321 GLUCOSE 85 mg/dL 08/24/2015 Comp Metabolic Guy713 Creat 0.9 mg/dL 08/24/2015 Comp Metabolic Ola482 eGFR 87 ml/min/1.73m2 08/24/2015 Comp Metabolic Xfp176 BUN 14 mg/dL 08/24/2015 Comp Metabolic Rjf700 B/C Ratio 14.9 Ratio 08/24/2015 Comp Metabolic Enq664 CALCIUM 9.5 mg/dL 08/24/2015 Comp Metabolic Gmm973 ALK PHOS 80 U/L 08/24/2015 Comp Metabolic Uzs910 AST(SGOT) 35 U/L 08/24/2015 Comp Metabolic Wqc471 ALT(SGPT) 58 U/L 08/24/2015 Comp Metabolic Hrt802 BILI T 0.8 mg/dL 08/24/2015 Comp Metabolic Adq415 ALBUMIN 4.8 g/dL 08/24/2015 Comp Metabolic Iab071 TPRO 7.3 g/dL 08/24/2015 Comp Metabolic Jgs437 GLOB 2.5 g/dL 08/24/2015 Comp Metabolic Gyu212 A/G Ratio 1.9 Ratio 08/24/2015 Comp Metabolic Rcc153 Osmo 272 mOsmo 08/24/2015 Tsh Ord6 hTSH [...] 34.8 % 08/24/2015 Cbc With Differential Ord2 [place]% 13.2 % 08/24/2015 Cbc With Differential Ord2 [...] 2.27 K/ul 08/24/2015 Cbc With Differential Ord2 [place] ABS# 0.9 K/ul 08/24/2015 Cbc With Differential [...] Ord2 RDW 13.4 % 08/26/2014 Comp Metabolic Dvq911 NA 135 mEq/L 08/26/2014 Comp Metabolic Emm268 K 4.7 mEq/L 08/26/2014 Comp Metabolic Lqs683 CL 101 mEq/L 08/26/2014 Comp Metabolic Ntm121 CO2 29.0 mEq/L 08/26/2014 Comp Metabolic Ifx105 ANION GAP 10 08/26/2014 Comp Metabolic Mah154 GLUCOSE 99 mg/dL 08/26/2014 Comp Metabolic Yjj519 Creat 0.9 mg/dL 08/26/2014 Comp Metabolic Jyb858 eGFR 97 ml/min/1.73m2 08/26/2014 Comp Metabolic Vil145 BUN 13 mg/dL 08/26/2014 Comp Metabolic Ffg866 B/C Ratio 15.1 Ratio 08/26/2014 Comp Metabolic Npm799 CALCIUM 9.7 mg/dL 08/26/2014 Comp Metabolic Zdf366 ALK PHOS 89 U/L 08/26/2014 Comp Metabolic Pxh101 AST(SGOT) 19 U/L 08/26/2014 Comp Metabolic Itp894 ALT(SGPT) 29 U/L 08/26/2014 Comp Metabolic Ghk205 BILI T 0.6 mg/dL 08/26/2014 Comp Metabolic Vbn463 ALBUMIN 4.5 g/dL 08/26/2014 Comp Metabolic Laq482 TPRO 6.9 g/dL 08/26/2014 Comp Metabolic Hpr156 GLOB 2.4 g/dL 08/26/2014 Comp Metabolic Lmr619 A/G Ratio 1.9 Ratio 08/26/2014 Comp Metabolic Hmq098 Osmo 270 mOsmo 08/26/2014 Review of Systems [...] Code : 8480-6 BMI: 30.9 Code : 43829-8 Heart Rate 1 : 74 bpm Height: 6'1" SpO2: 95% Weight: 234 lbs 08/25/2016 Blood Pressure 1: 132/82 Code : 8480-6 BMI: 30.1 Code : 65058-4 Heart Rate 1 : 78 bpm Height: 6'1" SpO2: 95% Weight: 228 lbs 10/26/2015 Blood Pressure 1: 124/80 Code : 8480-6 BMI: 30.6 Code : 86223-8 Heart Rate 1 : 91 bpm Height: 6'1" SpO2: 98% Weight: 232 lbs 08/24/2015 Blood Pressure 1: 130/84 Code : 8480-6 BMI: 30.5 Code : 83447-6 Heart Rate 1 : 78 bpm Height: 6'1" SpO2: 98% Weight: 231 lbs 08/25/2014 Blood Pressure 1: 122/78 Code : 8480-6 BMI: 28.6 Code : 67320-6 Heart Rate 1 : 68 bpm Height: [...] data Encounters Encounter Performer Location Codes Date ([id number] EST. PATIENT, LEVEL IV Diagnosis: Other idiopathic peripheral autonomic neuropathy[ICD10: G90.09] Diagnosis: Generalized anxiety disorder[ICD10: F41.1] Brenda Figueroa MD, [facility] CPT-4: 83721 02/19/2018 ([id number]) Miscellaneous no charge Diagnosis: Encounter for removal of sutures[ICD10: Z48.02] [facility] CPT-4: 72228 06/28/2017 ([id number]) 86414 EST. PATIENT, LEVEL IV Diagnosis: Other idiopathic peripheral autonomic neuropathy[ICD10: G90.09] [facility] CPT-4: 66212 08/25/2016 [id number] EST. PATIENT, LEVEL IV Diagnosis: Acute laryngopharyngitis[ICD10: J06.0] Diagnosis: Other allergic rhinitis[ICD10: J30.89] [facility] CPT-4: 87646 10/26/2015 ([id number]) PREV VISIT EST AGE 40-64 Diagnosis: Encounter for general adult medical examination without abnormal findings[ICD10: Z00.00] [facility] CPT-4: 78929 08/24/2015 ([id number]) OFFICE VISIT, NEW - LEVEL 3 Diagnosis: Peripheral neuropathy[ICD9: 356.9] Diagnosis: Tinea[ICD9: 110.9] Agueda Figueroa MD, [facility] CPT-4: 23067 08/25/2014 Plan of Care Planned Activity Notes Codes Status Date Visit Plan: Peripheral neuropathy- uncontrolled-patient has not tolerated medication-recommend he follow up with Dr Marquez for further evaluation -also discussed PT -patient will consider Anxiety-not well controlled -due to stress of brother with dementia-recommend Lan contact the psychiatric social worker supervisor at [facility] [place] to see if they can help with his brother-patient is not interested in medication at this time -will consider if symptoms do no improve or if any worse. 02/19/2018 Patient Education: Patient Medication Summary Completed 02/19/2018 Care Plan: Comp Metabolic Pending 02/19/2018 Care Plan: Cbc With Differential Pending 02/19/2018 Care Plan: Tsh Pending 02/19/2018 Care Plan: Lipid Pending 02/19/2018 Care Plan: Total Psa Pending 02/19/2018 Appointment: Nurse Visit 06/28/2017 Patient Education: [...] daily. 08/25/2016 [phone] ([facility] min) Moderate 08/25/2016 Patient Education: Patient [...] pharmacy. 10/26/2015 Appointment: [facility]ough[phone] [place] (30 min) Complex 10/26/2015 Patient Education: Patient [...] functioning. 08/24/2015 Appointment: [phone] (15 min) Moderate 08/24/2015 Patient Education: Patient [...] call if not improving. Referral back to [address] - [place] - history of vertebral fracture - his previous physician (physician office specialist) is no longer in practice at [address], he has spondylolisthesis and foraminal stenosis and persistent peripheral neuropathy symptoms. I made recommendations for a referral to Dr. Mcclure at [address] for follow up and further recommendations for imaging and treatment of his medical complications after a remote work related injury that was treated by his previous physician. 08/25/2014 Appointment: [phone] [phone] [place] ([place] New Patient 08/25/2014 Patient Education: [...] of brother with dementia-recommend Lan contact the psychiatric social worker supervisor at the [place] to see if they can help with [...] call if not improving. Referral back to [address] - [place] - history of vertebral fracture - his previous physician (physician office specialist) is no longer in practice at [address] , he has spondylolisthesis and foraminal stenosis and persistent peripheral neuropathy symptoms. I made recommendations for a referral to Dr. Mcclure at [address] for follow up and further recommendations [...]
[2018-03-23 10:30] VITALS: BP 138/98
--- NOTE | 2018-03-23 15:24 | OPERATIVE REPORT ---
DATE OF SERVICE: COLONOSCOPY SUMMARY INDICATION FOR THE PROCEDURE: Screening colonoscopy. Family history of colon cancer in multiple first degree relatives with family history of early colon cancer as well. DESCRIPTION OF PROCEDURE: The patient was placed in the left lateral decubitus position. Prior to doing a colonoscopy, digital rectal evaluation was performed. Anal sphincter tone was normal and the perianal reflex was intact. Prostate was mildly enlarged, anodular and nontender to digital inspection. No other abnormalities were noted on digital inspection of the anal canal or distal rectal vault. The colonoscope was then inserted into the rectum and under direct visualization advanced to the cecum. Cecum was identified by identification of the ileocecal valve and cecal strap. Photographic documentation was obtained. Careful inspection was made as the colonoscope was withdrawn. The patient tolerated the procedure well. FINDINGS: There was no evidence for internal or external hemorrhoids. Present in the distal rectum was a diminutive 3 to 4 mm sessile polyp, which was photographed and biopsied and ablated with no subsequent blood loss. A hyperplastic appearing distal sigmoid polyp was present about 1 to 2 mm in size. It was photographed and biopsied and ablated with minimal blood loss. The remainder of the sigmoid colon was unremarkable. No diverticula were noted. The descending colon, splenic flexure, transverse colon and hepatic flexure were unremarkable. Present in the proximal ascending colon was a questionable flat polyp roughly 4 x 5 mm in size. It was photographed and biopsied and ablated with minimal blood loss. The cecum was unremarkable. ASSESSMENT: Three diminutive polyps were removed today all with benign features via hot forceps. Considering this patient's strong family history for colon cancer, we would advocate consideration for repeat screening colonoscopy in three years. Digital rectal evaluation was compatible with the mild BPH as noted above. I thank you for the referral of this pleasant gentleman. Job ID: [id number] DocumentID: [id number] Dictated Date: 03/23/2018 10:22:28 Substation Inspector Date: 03/23/2018 15:23:34 Dictated By: MD AINSLEY GLASER
== END 2018-03-23 10:31 | disposition home or self-care (01) ==
LOC: ENDO 07:53
PROVIDERS: ATTEND Internal Medicine
DX: Z12.11 Encounter for screening for malignant neoplasm of colon (principal); K63.5 Polyp of colon; K62.1 Rectal polyp; Z80.0 Family history of malignant neoplasm of digestive organs; Z87.891 Personal history of nicotine dependence

== ENCOUNTER → 2018-04-17 | Outpatient (CLI) | payer MEDICARE, OTHER ==
--- NOTE | 2018-04-17 10:15 | Diagnostic Imaging Report ---
PROCEDURE: US Hepatic (Liver). TECHNIQUE: Multiple Real-time grayscale images were obtained over the right upper quadrant in various projections. INDICATION: Elevated liver enzymes. FINDINGS: There is some increased echogenicity of the liver, likely reflecting fatty infiltration. There is no obvious intrahepatic biliary ductal dilatation. The pancreas and common bile duct are obscured by bowel gas. There is no cholelithiasis, gallbladder wall thickening, or pericholecystic fluid. The right kidney is normal. There is no ascites. IMPRESSION: Unremarkable gallbladder. Limited exam as the common bile duct and pancreas are not well-seen due to bowel gas. Dictated by: Dictated on workstation # [id number]
== END ==
LOC: RAD 07:46
PROVIDERS: ATTEND Nurse Practitioner Family
DX: R94.5 Abnormal results of liver function studies (principal)
CPT/HCPCS: 76705

== ENCOUNTER → 2018-12-21 | Outpatient (CLI) | payer MEDICARE, OTHER | LOC: CARD 10:18 | PROVIDERS: ATTEND Internal Medicine Cardiovascular Disease | DX: I08.1 Rheumatic disorders of both mitral and tricuspid valves (principal); Z82.49 Family history of ischemic heart disease and other diseases of the circulatory system | CPT/HCPCS: 93306 ==

== ENCOUNTER → 2019-01-23 | Outpatient (CLI) | payer MEDICARE, OTHER | LOC: CARD 10:20 | PROVIDERS: ATTEND Internal Medicine Cardiovascular Disease | DX: I10 Essential (primary) hypertension (principal); R07.89 Other chest pain; R06.09 Other forms of dyspnea; Z82.49 Family history of ischemic heart disease and other diseases of the circulatory system | CPT/HCPCS: 93351 ==

== ENCOUNTER 2021-01-21 09:56 | Outpatient (CLI) | payer MEDICARE, OTHER ==
[~2021-01-21] VITALS: Ht 188 cm; Wt 95.3 kg
[2021-01-21] MEDS ORDERED: ACETAMINOPHEN 500 MG TAB (TYLENOL) PO PRN (10:15)
[2021-01-21] MEDS ORDERED: EPINEPHrine INJECTION 1 MG/ML AMP IM PRN (10:15)
[2021-01-21] MEDS ORDERED: ONDANSETRON 4 MG/2 ML (SDV) Z0FRAN IV PRN (10:15)
[2021-01-21] MEDS ORDERED: diphenhydrAMINE 50 MG/ML INJ (BENADRYL) IV PRN (10:15)
[2021-01-21] MEDS ORDERED: BAMLANIVIMAB 700 MG/ETESEVIMAB 1,400 MG IN NS IV ONE ×3 (10:15)
[2021-01-21 10:28] VITALS: BP 147/76
[2021-01-21 11:16] VITALS: BP 111/67
== END 2021-01-21 11:18 | disposition home or self-care (01) ==
LOC: INFUSION 09:56
PROVIDERS: ATTEND Nurse Practitioner Family
DX: U07.1 COVID-19 (principal)

== ENCOUNTER → 2021-02-09 | Outpatient (CLI) | payer MEDICARE, OTHER ==
--- NOTE | 2021-02-09 09:35 | Diagnostic Imaging Report ---
INDICATION: Dyspnea, post Covid infection. TECHNIQUE/COMPARISON: PA and lateral films of the chest were obtained at 9:37 AM and compared with 08/24/2009. FINDINGS: The heart and mediastinal silhouette are normal in appearance. The lungs show no focal infiltrate. There is no pneumothorax or pleural fluid. IMPRESSION: Negative chest. Dictated by: Dictated on workstation # [id number]
== END ==
LOC: RAD 09:12
PROVIDERS: ATTEND Nurse Practitioner Family
DX: R06.00 Dyspnea, unspecified (principal); Z86.16 Personal history of COVID-19
CPT/HCPCS: 71046

== ENCOUNTER → 2021-02-10 | Outpatient (CLI) | payer MEDICARE, OTHER ==
[~2021-02-10] MED LIST changes: +GADOTERATE 0.5 MMOL/ML (CLARISCAN) 20 ML VIAL IV ONE
--- NOTE | 2021-02-10 11:21 | Diagnostic Imaging Report ---
PROCEDURE: MR imaging of the brain with and without contrast. TECHNIQUE: Multiplanar, multisequence MR imaging of the brain was performed with and without contrast. INDICATION: Right-sided weakness, tremors. COMPARISON: There are no prior studies available for comparison. FINDINGS: There is no mass, shift of the midline, or hemorrhage to suggest an acute intracranial abnormality. There is no abnormal signal arising from the brain on the diffusion series to suggest an area of acute ischemia either. Furthermore, the postcontrast series is unremarkable for any abnormal enhancement that would indicate a neoplastic or infectious process. The ventricles are not abnormally dilated. The FLAIR series does show focal and diffuse areas of increased signal in the periventricular white matter bilaterally. These findings are nonspecific but may be related to encephalomalacia from microvascular ischemia. There is also cortical atrophy. The sella is not enlarged, and the expected carotid flow voids are evident bilaterally. The orbits are symmetrical and within normal limits. There is mucosal thickening of the floor of the right maxillary antrum. The sinuses are otherwise generally clear. The seventh and eighth nerve complexes are unremarkable. IMPRESSION: 1. There is no evidence for an acute intracranial abnormality. 2. There is no abnormal enhancement to suggest a neoplastic or infectious process. 3. There are senescent changes including cortical atrophy and periventricular encephalomalacia. 4. There is right maxillary sinusitis. Dictated by: Dictated on workstation # [id number]
== END ==
LOC: RAD 08:45
PROVIDERS: ATTEND Nurse Practitioner Family
DX: G31.89 Other specified degenerative diseases of nervous system (principal); J32.0 Chronic maxillary sinusitis
CPT/HCPCS: 70553

== ENCOUNTER → 2021-02-11 | Outpatient (CLI) | payer MEDICARE, OTHER ==
[~2021-02-11] MED LIST changes: -GADOTERATE 0.5 MMOL/ML (CLARISCAN) 20 ML VIAL IV ONE
== END ==
LOC: CARD 10:00
PROVIDERS: ATTEND Nurse Practitioner Family
DX: R06.09 Other forms of dyspnea (principal); Z82.49 Family history of ischemic heart disease and other diseases of the circulatory system
CPT/HCPCS: 93306